=== PATIENT | male | born 1975 | race Caucasian/White ===

== ENCOUNTER 2022-02-22 14:00 | Inpatient (IN) ==
[2022-02-22] MEDS ORDERED: ONDANSETRON INJ 2 MG/ML 2 ML VIAL IV STA ×2 (14:24→16:42)
[2022-02-22] MEDS ORDERED: SODIUM CHLORIDE 0.9% 1000ML 2,000 ML IV ONE (14:24)
--- NOTE | 2022-02-22 14:26 | Emergency Department Note ---
Impression & Plan Pneumonia, BARB (acute kidney injury), Acute dehydration, Tachycardia, Vomiting ED Provider Note NAME: ARMINDA JAMA AGE: 46 SEX: M : 1975 ARRIVES VIA: Walk-In INFORMANT: [Patient] ED PROVIDER(S): [Gunnar Boudreaux MD] CHIEF COMPLAINT: Fever HISTORY OF PRESENT ILLNESS: The patient is a 46-year-old male who has had a fever to 104 the last 3 days. He did vomit yesterday and today. He has a decreased appetite and feels nauseated. There has been a slight cough. No sore throat, no stuffy nose or abdominal pain. No urinary complaints, no diarrhea. Patient did notice a little bit of discomfort in the right jaw and he was wondering if a tooth may be bothering him. The patient went to urgent care yesterday, a COVID test was negative. The patient states he is here today because he is concerned for dehydration and he has no answers what is causing his fever. Patient took Tylenol about an hour and a half ago. REVIEW OF SYSTEMS: See HPI for pertinent positives and negatives. A total of ten systems were reviewed and were otherwise negative. PMHx/PSHx: See Below SOCIAL HISTORY: See Below. PHYSICAL EXAM: GENERAL: Patient is in no acute distress. HEENT: No acute trauma, normocephalic atraumatic, mucous membranes moist, no nasal congestion, no scleral icterus. No throat erythema or exudate. No obvious issues with his teeth. No tenderness to the teeth. NECK: No stridor, no adenopathy, no meningismus, trachea is midline. LUNGS: Clear to auscultation bilaterally, no wheeze, no rhonchi, breath sounds equal. HEART: Tachycardic, regular rhythm, no murmurs. ABDOMEN: Soft, nontender, bowel sounds positive, no peritonitis. EXTREMITIES: No cyanosis or edema, full range of motion of all the joints without pain or difficulty, no signs for acute trauma. NEUROLOGIC: Oriented x 3, no acute motor or sensory deficits, no focal weakness. SKIN: No rash, no jaundice, mild diaphoresis. DIFFERENTIAL DIAGNOSIS: Sepsis, UTI, Lyme disease, anaplasmosis, babesiosis, influenza, COVID-19, pneumonia, metabolic abnormality, electrolyte abnormalities, cardiac sources, cellulitis, bacteremia, as well as other pathologies. EMERGENCY DEPARTMENT COURSE/PROCEDURES: ECG: Indication was tachycardia. The ECG shows a sinus tachycardia with a rate of 116. There is no ST elevation, no PVCs. The QTc is 4397 Continuous Cardiac Monitoring: An order was placed for continuous cardiac monitoring. The monitor shows a rate of 128 with sinus tachycardia. MEDICAL DECISION MAKING: There is a moderate leukocytosis which would be consistent with infection. There is a normal hemoglobin and platelet count. No coagulopathy. Creatinine is a bit elevated at 1.56 consistent with dehydration. Lactic acid level is not elevated making severe sepsis less likely. No concerning liver enzyme elevation. Lyme disease testing returned negative. Anaplasmosis testing is pending. COVID, influenza and RSV testing was negative. Chest x-ray shows a right lung pneumonia. Chest CT confirms the same pneumonia, no PE. The patient had minimal respiratory complaints but had a clear pneumonia on x- ray and CT. He was dehydrated by history and laboratory testing. He was tachycardic while here in the ED. The patient was given 2 L of IV saline, he received IV Zofran. He required a second dose of IV Zofran and IV Phenergan to help control his nausea. He was given IV Toradol for pain. He received IV ceftriaxone and oral doxycycline. He was given a DuoNeb. The patient has pneumonia. He is persistently tachycardic. He has had some nausea and vomiting at home and is dehydrated. During his ER stay, he actually became a bit hypoxic requiring O2 supplementation. The patient is in need of a hospital stay. I did speak with the patient and his family, the on-call hospitalist was consulted. Past Med/Surg History Medical History No pertinent past medical history Surgical History (Updated 02/22/22 @ 20:00 by Danni Cedillo PA-C) No pertinent past surgical history Family History (Updated 02/22/22 @ 19:31 by Danni Cedillo PA-C) Father Diabetes Mother Migraines Social History Smoking Status: Never smoker Hx Alcohol Use: No Hx Substance Use: No Preferred Language: Swedish marital status: current occupational status: employed current occupation: [employer] Feels Safe at Home: Yes Allergies Allergies Allergy/AdvReac Type Severity Reaction Status Date / Time No Known Allergies Allergy Unknown Verified 02/22/22 19:57 Home Meds Home Medications Medication Instructions Recorded Confirmed No Known Home Medications 02/22/22 02/22/22 Results & Data (ED) Vital Signs Vital Signs - 24 hr 02/22/22 14:02 02/22/22 15:50 02/22/22 16:07 Temperature 36.6 C Temperature Source Temporal Artery Scan Pulse Rate 128 H 104 H Pulse Rate from SpO2 Sensor 105 H Respiratory Rate 16 14 Respiratory Effort / Characteristics Non-Labored Spontaneous Blood Pressure 128/71 Blood Pressure Mean 90 Pulse Oximetry 92 96 Oxygen Delivery Method Room Air Room Air Room Air Oxygen Flow Rate Sepsis Recent Fever Within 48 Hours Yes Sepsis New/Unexplained Change in Mental Status No Sepsis Action Taken by Nursing No Action Required 02/22/22 16:10 02/22/22 16:20 02/22/22 16:30 Temperature Temperature Source Pulse Rate 108 H 105 H 110 H Pulse Rate from SpO2 Sensor 109 H 107 H 109 H Respiratory Rate 20 18 22 Respiratory Effort / Characteristics Blood Pressure 127/88 Blood Pressure Mean 101 Pulse Oximetry 93 97 95 Oxygen Delivery Method Room Air Room Air Room Air Oxygen Flow Rate Sepsis Recent Fever Within 48 Hours Sepsis New/Unexplained Change in Mental Status Sepsis Action Taken by Nursing 02/22/22 16:40 02/22/22 16:50 02/22/22 17:00 Temperature Temperature Source Pulse Rate 111 H 110 H 113 H Pulse Rate from SpO2 Sensor 111 H 111 H 113 H Respiratory Rate 21 24 25 H Respiratory Effort / Characteristics Blood Pressure 129/75 Blood Pressure Mean 93 Pulse Oximetry 100 96 95 Oxygen Delivery Method Room Air Room Air Room Air Oxygen Flow Rate Sepsis Recent Fever Within 48 Hours Sepsis New/Unexplained Change in Mental Status Sepsis Action Taken by Nursing 02/22/22 17:10 02/22/22 17:20 02/22/22 17:30 Temperature Temperature Source Pulse Rate 118 H 118 H 118 H Pulse Rate from SpO2 Sensor 117 H 118 H 119 H Respiratory Rate 31 H 15 19 Respiratory Effort / Characteristics Blood Pressure 132/85 Blood Pressure Mean 100 Pulse Oximetry 93 93 95 Oxygen Delivery Method Room Air Room Air Room Air Oxygen Flow Rate Sepsis Recent Fever Within 48 Hours Sepsis New/Unexplained Change in Mental Status Sepsis Action Taken by Nursing 02/22/22 17:40 02/22/22 17:50 02/22/22 18:00 Temperature Temperature Source Pulse Rate 118 H 120 H 120 H Pulse Rate from SpO2 Sensor 118 H 120 H 120 H Respiratory Rate 20 38 H 37 H Respiratory Effort / Characteristics Blood Pressure 107/69 Blood Pressure Mean 81 Pulse Oximetry 94 90 91 Oxygen Delivery Method Room Air Nasal Cannula Nasal Cannula Oxygen Flow Rate 2 2 Sepsis Recent Fever Within 48 Hours Sepsis New/Unexplained Change in Mental Status Sepsis Action Taken by Nursing 02/22/22 18:10 Temperature Temperature Source Pulse Rate 122 H Pulse Rate from SpO2 Sensor 122 H Respiratory Rate 26 H Respiratory Effort / Characteristics Blood Pressure Blood Pressure Mean Pulse Oximetry 93 Oxygen Delivery Method Nasal Cannula Oxygen Flow Rate 2 Sepsis Recent Fever Within 48 Hours Sepsis New/Unexplained Change in Mental Status Sepsis Action Taken by Intermediate Medications Current Medication List: was personally reviewed by me Laboratory Data Attestation: I reviewed the patient's lab results. Result diagrams: 02/22/22 14:42 02/22/22 14:42 Lab Results 02/22/22 02/22/22 02/22/22 Range/Units 14:42 14:42 14:42 WBC 14.44 H (4.8-10.8) K/uL RBC 5.19 (4.7-6.1) M/uL Hgb 15.9 (14.0-18.0) g/dL Hct 45.4 (42-52) % MCV 87.5 (80-100) fL MCH 30.6 (25-34) pg MCHC 35.0 (32-36) g/dL RDW Std Deviation 40.8 (36.4-46.3) fL RDW Coeff of Tracy 12.7 (11.5-14.5) % Plt Count 158 (130-400) K/uL MPV 11.3 H (7.4-10.4) fL Immature Gran % (Auto) 0.7 % Neut % (Auto) 90.0 % Lymph % (Auto) 3.3 % Marathon % (Auto) 5.9 % Eos % (Auto) 0.0 % Baso % (Auto) 0.1 % Neut # (Auto) 13.01 H (1.4-6.5) K/uL Lymph # (Auto) 0.47 L (1.2-3.4) K/uL Marathon # (Auto) 0.85 H (0.11-0.59) K/uL Eos # (Auto) 0.00 (0-0.5) K/uL Baso # (Auto) 0.01 (0-0.2) K/uL Immature Gran # (Auto) 0.10 H (0.00-0.02) K/uL PT 11.5 (9.0-12.0) Seconds INR 1.1 (0.9-1.1) APTT 28.0 (21.0-31.0) Seconds PTT Ratio 1.0 Sodium 136 (136-145) mmol/L Potassium 3.6 (3.5-5.1) mmol/L Chloride 102 (98-107) mmol/L Carbon Dioxide 24 (21-32) mmol/L Anion Gap 10 (3-11) BUN 27 H (6-23) mg/dl Creatinine 1.56 H (0.6-1.4) mg/dl Est Cr Clr Drug Dosing 63.1 ml/min Est GFR ( Amer) 60.8 ml/min Est GFR (Non-Af Amer) 52.5 ml/min BUN/Creatinine Ratio 17.3 (10-20) Glucose 114 H (70-99(Fasting)) mg/dl Lactate (0.4-2.0) mmol/L Calcium 9.4 (8.5-10.1) mg/dl Magnesium 1.9 (1.7-2.4) mg/dl Total Bilirubin 0.7 (0.2-1.0) mg/dl AST 15 (13-39) U/L ALT 14 (7-52) U/L Alkaline Phosphatase 64 (34-104) U/L Total Protein 7.5 (6.0-8.3) gm/dl Albumin 3.9 (3.4-5.0) gm/dl Globulin 3.6 (2.5-4.0) gm/dl Albumin/Globulin Ratio 1.1 (0.9-2) Procalcitonin (0-0.5) ng/ml Lyme Disease IgG Ab (Negative) Lyme Disease IgM Ab (Negative) SARS-CoV-2 (PCR) (Negative) Influenza Type A (PCR) (Neg) Influenza Type B (PCR) (Neg) RSV (RT-PCR) (Neg) 02/22/22 02/22/22 02/22/22 Range/Units 14:42 14:42 15:55 WBC (4.8-10.8) K/uL RBC (4.7-6.1) M/uL Hgb (14.0-18.0) g/dL Hct (42-52) % MCV (80-100) fL MCH (25-34) pg MCHC (32-36) g/dL RDW Std Deviation (36.4-46.3) fL RDW Coeff of Tracy (11.5-14.5) % Plt Count (130-400) K/uL MPV (7.4-10.4) fL Immature Gran % (Auto) % Neut % (Auto) % Lymph % (Auto) % Marathon % (Auto) % Eos % (Auto) % Baso % (Auto) % Neut # (Auto) (1.4-6.5) K/uL Lymph # (Auto) (1.2-3.4) K/uL Marathon # (Auto) (0.11-0.59) K/uL Eos # (Auto) (0-0.5) K/uL Baso # (Auto) (0-0.2) K/uL Immature Gran # (Auto) (0.00-0.02) K/uL PT (9.0-12.0) Seconds INR (0.9-1.1) APTT (21.0-31.0) Seconds PTT Ratio Sodium (136-145) mmol/L Potassium (3.5-5.1) mmol/L Chloride (98-107) mmol/L Carbon Dioxide (21-32) mmol/L Anion Gap (3-11) BUN (6-23) mg/dl Creatinine (0.6-1.4) mg/dl Est Cr Clr Drug Dosing ml/min Est GFR ( Amer) ml/min Est GFR (Non-Af Amer) ml/min BUN/Creatinine Ratio (10-20) Glucose (70-99(Fasting)) mg/dl Lactate 1.4 (0.4-2.0) mmol/L Calcium (8.5-10.1) mg/dl Magnesium (1.7-2.4) mg/dl Total Bilirubin (0.2-1.0) mg/dl AST (13-39) U/L ALT (7-52) U/L Alkaline Phosphatase (34-104) U/L Total Protein (6.0-8.3) gm/dl Albumin (3.4-5.0) gm/dl Globulin (2.5-4.0) gm/dl Albumin/Globulin Ratio (0.9-2) Procalcitonin (0-0.5) ng/ml Lyme Disease IgG Ab Negative (Negative) Lyme Disease IgM Ab Negative (Negative) SARS-CoV-2 (PCR) NEGATIVE (Negative) Influenza Type A (PCR) Negative (Neg) Influenza Type B (PCR) Negative (Neg) RSV (RT-PCR) Negative (Neg) 02/22/22 Range/Units 19:07 WBC (4.8-10.8) K/uL RBC (4.7-6.1) M/uL Hgb (14.0-18.0) g/dL Hct (42-52) % MCV (80-100) fL MCH (25-34) pg MCHC (32-36) g/dL RDW Std Deviation (36.4-46.3) fL RDW Coeff of Tracy (11.5-14.5) % Plt Count (130-400) K/uL MPV (7.4-10.4) fL Immature Gran % (Auto) % Neut % (Auto) % Lymph % (Auto) % Marathon % (Auto) % Eos % (Auto) % Baso % (Auto) % Neut # (Auto) (1.4-6.5) K/uL Lymph # (Auto) (1.2-3.4) K/uL [place] # (Auto) (0.11-0.59) K/uL Eos # (Auto) (0-0.5) K/uL Baso # (Auto) (0-0.2) K/uL Immature Gran # (Auto) (0.00-0.02) K/uL PT (9.0-12.0) Seconds INR (0.9-1.1) APTT (21.0-31.0) Seconds PTT Ratio Sodium (136-145) mmol/L Potassium (3.5-5.1) mmol/L Chloride (98-107) mmol/L Carbon Dioxide (21-32) mmol/L Anion Gap (3-11) BUN (6-23) mg/dl Creatinine (0.6-1.4) mg/dl Est Cr Clr Drug Dosing ml/min Est GFR ( Amer) ml/min Est GFR (Non-Af Amer) ml/min BUN/Creatinine Ratio (10-20) Glucose (70-99(Fasting)) mg/dl Lactate (0.4-2.0) mmol/L Calcium (8.5-10.1) mg/dl Magnesium (1.7-2.4) mg/dl Total Bilirubin (0.2-1.0) mg/dl AST (13-39) U/L ALT (7-52) U/L Alkaline Phosphatase (34-104) U/L Total Protein (6.0-8.3) gm/dl Albumin (3.4-5.0) gm/dl Globulin (2.5-4.0) gm/dl Albumin/Globulin Ratio (0.9-2) Procalcitonin 3.38 H (0-0.5) ng/ml Lyme Disease IgG Ab (Negative) Lyme Disease IgM Ab (Negative) SARS-CoV-2 (PCR) (Negative) Influenza Type A (PCR) (Neg) Influenza Type B (PCR) (Neg) RSV (RT-PCR) (Neg) Administered Medications Discontinued Medications Albuterol (Albut/Ipratrop 3mg/0.5mg Neb 3 Ml Vial) 3 ml NEB NOW STA; Protocol Stop: 02/22/22 18:38 Last Admin: 02/22/22 19:05 Dose: 3 ml Documented by: [id number] Doxycycline Hyclate (Doxycycline Hyclate 100 Mg Cap) 100 mg PO NOW STA Stop: 02/22/22 16:07 Last Admin: 02/22/22 19:06 Dose: 100 mg Documented by: [id number] Sodium Chloride (Nss 1000ml) 2,000 mls @ 999 mls/hr IV .Q2H1M ONE Stop: 02/22/22 16:24 Last Infusion: 02/22/22 17:48 Dose: 0 mls/hr Documented by: [id number] Admin: 02/22/22 15:52 Dose: 999 mls/hr Documented by: [id number] Ceftriaxone Sodium (Rocephin) 2,000 mg in 70 mls @ 140 mls/hr IV NOW STA Stop: 02/22/22 15:32 Last Infusion: 02/22/22 16:27 Dose: 0 mls/hr Documented by: [id number] Admin: 02/22/22 15:52 Dose: 140 mls/hr Documented by: [id number] Promethazine HCl (Phenergan) 6.25 mg in 50.25 mls @ 201 mls/hr IV NOW STA Stop: 02/22/22 16:56 Last Infusion: 02/22/22 17:48 Dose: 0 mls/hr Documented by: [id number] Admin: 02/22/22 17:31 Dose: 201 mls/hr Documented by: [id number] Ioversol (Optiray 320 125ml) 114 ml IV ONCE ONE Stop: 02/22/22 19:00 Last Admin: 02/22/22 19:00 Dose: 114 ml Documented by: [id number] Ketorolac Tromethamine (Ketorolac Tromethamine 15 Mg/Ml Vial) 15 mg IV NOW STA Stop: 02/22/22 16:43 Last Admin: 02/22/22 17:31 Dose: 15 mg Documented by: [id number] Ondansetron HCl (Ondansetron Inj 2 Mg/Ml 2 Ml Vial) 4 mg IV NOW STA Stop: 02/22/22 14:25 Last Admin: 02/22/22 15:52 Dose: 4 mg Documented by: [id number] Ondansetron HCl (Ondansetron Inj 2 Mg/Ml 2 Ml Vial) 4 mg IV NOW STA Stop: 02/22/22 16:43 Last Admin: 02/22/22 17:31 Dose: 4 mg Documented by: [id number] Imaging Data Radiologist's Impression: Chest X-Ray 02/22/22 14:24 XR chest 1V portable HISTORY: 46 years-old Male SEPSIS acute sepsis with fever COMPARISON: None TECHNIQUE: Portable AP view of the chest FINDINGS: The cardiomediastinal and hilar silhouettes are within normal limits. No pneumothorax, or large pleural effusion or overt pulmonary edema. Right lung base airspace opacities are noted along with right infrahilar opacities. Bones appear grossly intact. IMPRESSION: Right basilar and infrahilar opacities are suggestive of pneumonia. Follow-up imaging after treatment course is needed to document complete resolution. ACT 112: Negative or not required by law. The above report was generated using voice recognition software. It may contain grammatical, syntax or spelling errors. Electronically signed by: Isidro Campo M.D. 02/22/2022 2:50 PM Chest CTA 02/22/22 18:20 CT angio chest PE protocol CLINICAL HISTORY: PE TECHNIQUE: Multidetector row helical CT of the chest was performed with angiographic protocol. Coronal and sagittal reformations were obtained. Coronal and sagittal MIPS were obtained from the axial data set and were submitted for review. Automated dose lowering techniques and/or adjustment according to patient size were utilized for this exam. CT DOSE: 552.48 mGy.cm Comparison: None available at the time of this dictation. FINDINGS: Lungs and pleura: Right lower lobe airspace opacity is seen. Heart and pericardium: Heart size is normal. No pericardial effusion. Vessels: No evidence of pulmonary embolism. Mediastinum and sailaja: Subcentimeter lymph nodes are seen. Chest wall and lower neck: Subcentimeter thyroid nodules are noted which do not require follow-up by ACR criteria. Abdomen: Unremarkable. Bones: Unremarkable. IMPRESSION: 1. Right lower lobe airspace opacity may represent aspiration and/or pneumonia. 2. No evidence of pulmonary embolism. ACT 112: Negative or not required by law. Electronically signed by: Cortez Helton M.D. 02/22/2022 7:11 PM KUB X-Ray 02/22/22 19:49 XR KUB/Abdomen 1 view CLINICAL HISTORY: abd pain TECHNIQUE: 1 view of the abdomen was obtained. Comparison: None available at the time of this dictation. FINDINGS: Incidental note is made of bilateral pyelograms prior contrast exam. The osseous structures are grossly unremarkable. The bowel gas pattern is nonobstructive. A moderate amount of stool is noted within the large bowel. IMPRESSION: Nonobstructive bowel gas pattern. ACT 112: Negative or not required by law. Electronically signed by: Cortez Helton M.D. 02/22/2022 8:33 PM Discharge Plan Visit Data Chief Complaint: Fever Stated Complaint: FEVER FOR SEVERAL DAYS ED Provider: Gunnar Boudreaux Discharge Problem: Pneumonia, BARB (acute kidney injury), Acute dehydration, Tachycardia, Vomiting Patient Disposition: Admitted As Inpatient Condition: Fair Forms Stand Alone Forms: Runtastic Prescriptions Prescriptions: No Action No Known Home Medications RF: 0 Referrals Referrals: Karoline Yepez DO [Primary Care Provider] -
--- NOTE | 2022-02-22 14:52 | XRay Report ---
XR chest 1V portable HISTORY: 46 years-old Male SEPSIS acute sepsis with fever COMPARISON: None TECHNIQUE: Portable AP view of the chest FINDINGS: The cardiomediastinal and hilar silhouettes are within normal limits. No pneumothorax, or large pleur al effusion or overt pulmonary edema. Right lung base airspace opacities are noted along with right i nfrahilar opacities. Bones appear grossly intact. IMPRESSION: Right basilar and infrahilar opacities are suggestive of pneumonia. Follow-up imaging aft er treatment course is needed to document complete resolution. ACT 112: Negative or not required by law. The above report was generated using voice recognition software. It may contain grammatical, syntax o r spelling errors. Electronically signed by: Isidro Campo M.D. 02/22/2022 2:50 PM
[2022-02-22] MEDS ORDERED: cefTRIAXone SODIUM 2,000 MG/70 ML BAG IV STA (15:03)
[2022-02-22 15:04] LABS: Basophils # (auto) 0.01 K/uL (0-0.2); Basophils % (auto) 0.1 %; Hematocrit (blood only) 45.4 % (42-52); Hemoglobin 15.9 g/dL (14.0-18.0); Immature Granulocytes % (auto) 0.7 %; Lymphocytes # (auto) 0.47 K/uL (1.2-3.4); Lymphocytes % (auto) 3.3 %; Mean Corpuscular Hemoglobin 30.6 pg (25-34); Mean Corpuscular Volume 87.5 fL (80-100); Mean Platelet Volume 11.3 fL (7.4-10.4); Monocytes # (auto) 0.85 K/uL (0.11-0.59); Monocytes % (auto) 5.9 %; Neutrophils # (auto) 13.01 K/uL (1.4-6.5); Platelet Count 158 K/uL (130-400); RDW Coefficient of Variation 12.7 % (11.5-14.5); RDW Standard Deviation 40.8 fL (36.4-46.3); Red Blood Count 5.19 M/uL (4.7-6.1); White Blood Count 14.44 K/uL (4.8-10.8)
[2022-02-22 15:17] LABS: Albumin Globulin Ratio 1.1 (0.9-2); Albumin Level 3.9 gm/dl (3.4-5.0); BUN Creatinine Ratio 17.3 (10-20); Bilirubin,Total 0.7 mg/dl (0.2-1.0); Calcium 9.4 mg/dl (8.5-10.1); Creatinine Clr Calc Pharmacy 63.1 ml/min; Est GFR (African American) 60.8 ml/min; Est GFR (Non-African American) 52.5 ml/min; Globulin 3.6 gm/dl (2.5-4.0); Magnesium 1.9 mg/dl (1.7-2.4); Potassium 3.6 mmol/L (3.5-5.1); Total Protein 7.5 gm/dl (6.0-8.3)
[2022-02-22 15:23] LABS: INR 1.1 (0.9-1.1); Prothrombin Time 11.5 Seconds (9.0-12.0)
[2022-02-22 15:56] LABS: Lyme Ab IgG w/WB Rflx Negative (Negative); Lyme Ab IgM w/WB Rflx Negative (Negative)
--- NOTE | 2022-02-22 16:05 | Electrocardiogram Report ---
Test Reason : Blood Pressure : / mmHG Vent. Rate : 116 BPM Atrial Rate : 116 BPM P-R Int : 150 ms QRS Dur : 084 ms QT Int : 286 ms P-R-T Axes : 048 038 012 degrees QTc Int : 397 ms Sinus tachycardia Otherwise normal ECG When compared with ECG of 22-SEP-2010 23:54, No significant change was found Confirmed by Pipo Truong ([id number]) on 02/22/2022 4:04:55 PM Referred By: REFERRED SELF Confirmed By:Pipo Truong
[2022-02-22] MEDS ORDERED: DOXYCYCLINE HYCLATE 100 MG CAP PO STA (16:06)
[2022-02-22] MEDS ORDERED: KETOROLAC TROMETHAMINE 15 MG/ML VIAL IV STA (16:42)
[2022-02-22] MEDS ORDERED: PROMETHAZINE 6.25 MG/50.25 ML BAG IV STA (16:42)
[2022-02-22 17:08] LABS: Influenza A virus by PCR Negative (Neg); Influenza B virus by PCR Negative (Neg); RSV by PCR Negative (Neg); SARS CoV2 RNA(COVID-19) InHosp NEGATIVE (Negative)
[2022-02-22] MEDS ORDERED: ALBUT/IPRATROP 3MG/0.5MG NEB 3 ML VIAL NEB STA (18:37)
[2022-02-22] MEDS ORDERED: OPTIRAY 320 125ml IV ONE (18:59)
--- NOTE | 2022-02-22 19:12 | CT Scan Report ---
CT angio chest PE protocol CLINICAL HISTORY: PE TECHNIQUE: Multidetector row helical CT of the chest was performed with angiographic protocol. Garland l and sagittal reformations were obtained. Coronal and sagittal MIPS were obtained from the axial nancy a set and were submitted for review. Automated dose lowering techniques and/or adjustment according to patient size were utilized for this exam. CT DOSE: 552.48 mGy.cm Comparison: None available at the time of this dictation. FINDINGS: Lungs and pleura: Right lower lobe airspace opacity is seen. Heart and pericardium: Heart size is normal. No pericardial effusion. Vessels: No evidence of pulmonary embolism. Mediastinum and sailaja: Subcentimeter lymph nodes are seen. Chest wall and lower neck: Subcentimeter thyroid nodules are noted which do not require follow-up by ACR criteria. Abdomen: Unremarkable. Bones: Unremarkable. IMPRESSION: 1. Right lower lobe airspace opacity may represent aspiration and/or pneumonia. 2. No evidence of pulmonary embolism. ACT 112: Negative or not required by law. Electronically signed by: Cortez Helton M.D. 02/22/2022 7:11 PM
--- NOTE | 2022-02-22 20:10 | History & Physical Report ---
Date of Service February 22, 2022 Assessment & Plan (1) Sepsis: (2) RLL pneumonia: (3) Hypoxia: (4) BARB (acute kidney injury): (5) Nausea & vomiting: Plan: Patient meets sepsis criteria per current CMS guidelines Upon admission patient was tachycardic, tachypneic and elevated white blood cell count of 14k. Patient also reports fever of 104 for the last 3 days at home. Source: Right lower lobe pneumonia Lactic acid, Lyme, SARS-CoV-2, influenza AMB and RSV all negative He received 2 L of IV fluid along with broad-spectrum antibiotics with IV Rocephin and oral doxycycline Sepsis Right lower lobe pneumonia Hypoxia Admit to PCU Continue broad-spectrum antibiotics with IV Rocephin and IV azithromycin As needed xopenex nebulizer Supplemental oxygen as needed Encourage pulmonary toilet with incentive spirometry Aspiration precautions Procalcitonin pending, urine for Legionella ordered, mrsa swab blood cultures pending BARB cr 1.56, likely 2/2 to dehydration due to infection/sepsis continue IVF NSS @ 125cc/hr repeat bmp in a.m. Nausea & Vomiting obtain KUB continue anti emetics, IVF clear liquid diet for now, can advance as tolerated DVT ppx: SQ Lovenox Dispo: PCU FULL CODE PCP: Marleni, given pt otherwise healthy he has not seen PCP in a long time, will need OP follow up Pt was seen and examined in collaboration with Dr. Crenshaw, please see addendum History of Present Illness Chief Complaint: Fever x 3 days. Primary Care Provider: Karoline Yepez, DO This is a 46-year-old male who has significant past medical history and is otherwise healthy who presents to ED after having a fever of 104 for the last 3 days. He further complains of nausea and vomiting over the last 2 days. He also has mild lower abdominal pain. Patient did go to urgent care yesterday and had a COVID test which was negative. He presented to ED today after continuing to have a fever and fear of dehydration. He has been taking Tylenol at home to assist in fever. He denies any sick contacts or recent travel. He has no known past medical problems and does not take any prescription medications. Over the last few days he has had a poor appetite. He further admits to shortness of breath with exertion but denies any isaías cough. He further denies lightheadedness, dizziness, chest pain, hemoptysis, dysuria, increased urgency or frequency with urination, diarrhea, melena or hematochezia. He has never had a thing like this in the past. In ED patient met sepsis criteria secondary to tachycardia, tachypnea, leukocytosis and evidence of right lower lobe pneumonia on chest x-ray. He also appears dehydrated as he is elevated BUN and creatinine at 27 and 1.56. His lactic acid was within normal limits. His Lyme titer was negative along with a SARS-CoV-2, influenza and RSV. Allergies Allergy/AdvReac Type Severity Reaction Status Date / Time No Known Allergies Allergy Unknown Verified 02/22/22 19:57 Home Medications Medication Instructions Recorded Confirmed Type No Known Home Medications 02/22/22 02/22/22 History Past Med/Surg History Medical History No pertinent past medical history Surgical History (Updated 02/22/22 @ 20:00 by Danni Cedillo PA-C) No pertinent past surgical history Family History (Updated 02/22/22 @ 19:31 by Danni Cedillo PA-C) Father Diabetes Mother Migraines Social History Smoking Status: Never smoker Hx Alcohol Use: No Hx Substance Use: No Preferred Language: Czech marital status: current occupational status: employed 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 Crenshaw addendum for physical exam findings. Results & Data Results & Data ([facility]) Vital Signs (Past 12 Hours) Vital Signs Temp Pulse Resp BP Pulse Ox 02/22/22 18:10 122 H 26 H 93 02/22/22 18:00 120 H 37 H 107/69 91 02/22/22 17:50 120 H 38 H 90 02/22/22 17:40 118 H 20 94 02/22/22 17:30 118 H 19 132/85 95 02/22/22 17:20 118 H 15 93 02/22/22 17:10 118 H 31 H 93 02/22/22 17:00 113 H 25 H 129/75 95 02/22/22 16:50 110 H 24 96 02/22/22 16:40 111 H 21 100 02/22/22 16:30 110 H 22 127/88 95 02/22/22 16:20 105 H 18 97 02/22/22 16:10 108 H 20 93 02/22/22 16:07 104 H 14 96 02/22/22 14:02 36.6 C 128 H 16 128/71 92 Diagnostic Findings Chest X-Ray 02/22/22 14:24 XR chest 1V portable HISTORY: 46 years-old Male SEPSIS acute sepsis with fever COMPARISON: None TECHNIQUE: Portable AP view of the chest FINDINGS: The cardiomediastinal and hilar silhouettes are within normal limits. No pneumothorax, or large pleural effusion or overt pulmonary edema. Right lung base airspace opacities are noted along with right infrahilar opacities. Bones appear grossly intact. IMPRESSION: Right basilar and infrahilar opacities are suggestive of pneumonia. Follow-up imaging after treatment course is needed to document complete resolution. ACT 112: Negative or not required by law. The above report was generated using voice recognition software. It may contain grammatical, syntax or spelling errors. Electronically signed by: Isidro Campo M.D. 02/22/2022 2:50 PM Chest CTA 02/22/22 18:20 CT angio chest PE protocol CLINICAL HISTORY: PE TECHNIQUE: Multidetector row helical CT of the chest was performed with angiographic protocol. Coronal and sagittal reformations were obtained. Coronal and sagittal MIPS were obtained from the axial data set and were submitted for review. Automated dose lowering techniques and/or adjustment according to patient size were utilized for this exam. CT DOSE: 552.48 mGy.cm Comparison: None available at the time of this dictation. FINDINGS: Lungs and pleura: Right lower lobe airspace opacity is seen. Heart and pericardium: Heart size is normal. No pericardial effusion. Vessels: No evidence of pulmonary embolism. Mediastinum and sailaja: Subcentimeter lymph nodes are seen. Chest wall and lower neck: Subcentimeter thyroid nodules are noted which do not require follow-up by ACR criteria. Abdomen: Unremarkable. Bones: Unremarkable. IMPRESSION: 1. Right lower lobe airspace opacity may represent aspiration and/or pneumonia. 2. No evidence of pulmonary embolism. ACT 112: Negative or not required by law. Electronically signed by: Cortez Helton M.D. 02/22/2022 7:11 PM Medications Administered Medication List Discontinued Medications Albuterol (Albut/Ipratrop 3mg/0.5mg Neb 3 Ml Vial) 3 ml NEB NOW STA; Protocol Stop: 02/22/22 18:38 Last Admin: 02/22/22 19:05 Dose: 3 ml Documented by: [id number] Doxycycline Hyclate (Doxycycline Hyclate 100 Mg Cap) 100 mg PO NOW STA Stop: 02/22/22 16:07 Last Admin: 02/22/22 19:06 Dose: 100 mg Documented by: [id number] Sodium Chloride (Nss 1000ml) 2,000 mls @ 999 mls/hr IV .Q2H1M ONE Stop: 02/22/22 16:24 Last Infusion: 02/22/22 17:48 Dose: 0 mls/hr Documented by: [id number] Admin: 02/22/22 15:52 Dose: 999 mls/hr Documented by: [id number] Ceftriaxone Sodium (Rocephin) 2,000 mg in 70 mls @ 140 mls/hr IV NOW STA Stop: 02/22/22 15:32 Last Infusion: 02/22/22 16:27 Dose: 0 mls/hr Documented by: [id number] Admin: 02/22/22 15:52 Dose: 140 mls/hr Documented by: [id number] Promethazine HCl (Phenergan) 6.25 mg in 50.25 mls @ 201 mls/hr IV NOW STA Stop: 02/22/22 16:56 Last Infusion: 02/22/22 17:48 Dose: 0 mls/hr Documented by: [id number] Admin: 02/22/22 17:31 Dose: 201 mls/hr Documented by: [id number] Ioversol (Optiray 320 125ml) 114 ml IV ONCE ONE Stop: 02/22/22 19:00 Last Admin: 02/22/22 19:00 Dose: 114 ml Documented by: [id number] Ketorolac Tromethamine (Ketorolac Tromethamine 15 Mg/Ml Vial) 15 mg IV NOW STA Stop: 02/22/22 16:43 Last Admin: 02/22/22 17:31 Dose: 15 mg Documented by: [id number] Ondansetron HCl (Ondansetron Inj 2 Mg/Ml 2 Ml Vial) 4 mg IV NOW STA Stop: 02/22/22 14:25 Last Admin: 02/22/22 15:52 Dose: 4 mg Documented by: [id number] Ondansetron HCl (Ondansetron Inj 2 Mg/Ml 2 Ml Vial) 4 mg IV NOW STA Stop: 02/22/22 16:43 Last Admin: 02/22/22 17:31 Dose: 4 mg Documented by: [id number] ECG Rate (beats per minute): 116 Rhythm: sinus tachycardia Additional Comments: qtc 397ms COVID-19 Results Results COVID-19 Adm Lab Results: RBC 5.19 M/uL (4.7-6.1) 02/22/22 WBC 14.44 K/uL (4.8-10.8) H 02/22/22 Hgb 15.9 g/dL (14.0-18.0) 02/22/22 Hct 45.4 % (42-52) 02/22/22 Plt Count 158 K/uL (130-400) 02/22/22 Neutrophils (%) (Auto) 90.0 % 02/22/22 Lymphocytes (%) (Auto) 3.3 % 02/22/22 Monocytes # (Auto) 0.85 K/uL (0.11-0.59) H 02/22/22 Eosinophils # (Auto) 0.00 K/uL (0-0.5) 02/22/22 Immature Granulocyte % (Auto) 0.7 % 02/22/22 Neutrophils # (Auto) 13.01 K/uL (1.4-6.5) H 02/22/22 Lymphocytes # (Auto) 0.47 K/uL (1.2-3.4) L 02/22/22 Monocytes # (Auto) 0.85 K/uL (0.11-0.59) H 02/22/22 Eosinophils # (Auto) 0.00 K/uL (0-0.5) 02/22/22 Basophils # (Auto) 0.01 K/uL (0-0.2) 02/22/22 Immature Granulocyte # (Auto) 0.10 K/uL (0.00-0.02) H 02/22/22 Na 136 mmol/L (136-145) 02/22/22 K 3.6 mmol/L (3.5-5.1) 02/22/22 Cl 102 mmol/L (98-107) 02/22/22 CO2 24 mmol/L (21-32) 02/22/22 Anion Gap 10 (3-11) 02/22/22 BUN 27 mg/dl (6-23) H 02/22/22 Creatinine 1.56 mg/dl (0.6-1.4) H 02/22/22 BUN/Creatinine Ratio 17.3 (10-20) 02/22/22 Glucose Level 114 mg/dl (70-99(Fasting)) H 02/22/22 Ca 9.4 mg/dl (8.5-10.1) 02/22/22 Total Bilirubin 0.7 mg/dl (0.2-1.0) 02/22/22 AST/SGOT 15 U/L (13-39) 02/22/22 ALT/SGPT 14 U/L (7-52) 02/22/22 Alkaline Phosphatase 64 U/L (34-104) 02/22/22 Total Protein 7.5 gm/dl (6.0-8.3) 02/22/22 Albumin 3.9 gm/dl (3.4-5.0) 02/22/22 Globulin 3.6 gm/dl (2.5-4.0) 02/22/22 Albumin/Globulin Ratio 1.1 (0.9-2) 02/22/22 Procalcitonin 3.38 ng/ml (0-0.5) H 02/22/22 PTT 28.0 Seconds (21.0-31.0) 02/22/22 INR 1.1 (0.9-1.1) 02/22/22 COVID-19 PCR NEGATIVE (Negative) 02/22/22 Influenza Virus Type A (PCR) Negative (Neg) 02/22/22 Influenza Virus Type B (PCR) Negative (Neg) 02/22/22 Chest X-Ray 02/22/22 Code Status & VTE Plan Code Status FULL CODE VTE Prophylaxis Plan VTE Prophylaxis will be ordered: Yes Supervising Physician Co-Signing Physician Notes Patient is a 46-year-old male with no significant past medical history presents with history of fever, nausea, vomiting, mild lower abdominal pain, poor appetite and some dyspnea which has been gradually worsening for the past 3 days. He denies any significant cough. Denies sick contacts. Please review HPI for complete details of presentation. Blood work showed WBC 14.4, hemoglobin 15.9, platelet 158, sodium 136, potassium 3.6, bicarbonate 24, creatinine 1.5, procalcitonin 3.38. Screen for COVID, influenza, RSV negative. Chest CTA showed right lower lobe airspace opacity concerning for pneumonia. KUB showed nonobstructive bowel gas pattern. Blood cultures pending. Physical Exam: Vitals signs as noted above General Appearance:Moderately built and nourished, no apparent distress Head: normocephalic, Atraumatic Eyes: normal inspection, EOMI Neck: supple, Trachea midline Respiratory/Chest: Normal breath sounds, R basal crackles, No accessory muscle use Cardiovascular: S1, S2, No murmur Abdomen/GI:Soft, Non tender, Bowel sounds present Extremities/Musculoskeletal:normal inspection, no edema Neurologic/Psych:AAOX3, grossly no focal neurological deficits Skin:normal color,warm Sepsis CAP BARB Start on ceftriaxone, azithromycin, follow-up cultures IV fluids Avoid nephrotoxic agents as able Check stool studies if atorvastatin Agree with checking urine for Legionella Advance diet as tolerated Nebs PRN Consider renal ultrasound if no improvement of creatinine I personally reviewed the record. Patient is interviewed and examined at bedside. Patient's care is coordinated with Danni Cedillo PA-C. Please refer to the documentation above for details of patient's presentation and for dis cussion of other issues.
--- NOTE | 2022-02-22 20:34 | XRay Report ---
XR KUB/Abdomen 1 view CLINICAL HISTORY: abd pain TECHNIQUE: 1 view of the abdomen was obtained. Comparison: None available at the time of this dictation. FINDINGS: Incidental note is made of bilateral pyelograms prior contrast exam. The osseous structures are gross ly unremarkable. The bowel gas pattern is nonobstructive. A moderate amount of stool is noted within the large bowel. IMPRESSION: Nonobstructive bowel gas pattern. ACT 112: Negative or not required by law. Electronically signed by: Cortez Helton M.D. 02/22/2022 8:33 PM
[2022-02-22] MEDS ORDERED: ALUMINUM/MAGNESIUM SUSP 30 ML UDC PO PRN (21:19)
[2022-02-22] MEDS ORDERED: POLYETHYLENE (MIRALAX) 17 GM PACK PO PRN (21:19)
[2022-02-22] MEDS ORDERED: MAGNESIUM HYDROXIDE SUSP 30 ML UDC PO PRN (21:19)
[2022-02-22] MEDS ORDERED: ONDANSETRON INJ 2 MG/ML 2 ML VIAL IV PRN (21:19)
[2022-02-22] MEDS: ACETAMINOPHEN 325 MG TAB PO PRN (21:37)
[2022-02-22] MEDS: SODIUM CHLORIDE 0.9% 1000ML 1,000 ML IV SCH (21:48)
[2022-02-22] MEDS: ENOXAPARIN INJ 40 MG/0.4 ML SYR SQ SCH (22:49)
[2022-02-22] MEDS: FAMOTIDINE 10 MG TABLET PO SCH (22:50)
[2022-02-22] MEDS: AZITHROMYCIN 500 MG in DEXTROSE 5% 250 ML IV SCH (23:33)
[2022-02-23] MEDS ORDERED: FLUARIX QUADRIVALENT 0.5 ML SYR IM ONE (01:13)
[2022-02-23] MEDS: ACETAMINOPHEN 325 MG TAB PO PRN ×5 (03:40→20:07)
[2022-02-23] MEDS: BENZONATATE 100 MG CAPSULE PO PRN (04:25)
[2022-02-23] MEDS ORDERED: SODIUM CHLORIDE 0.65% NA SOLN 45 ML (OCEAN) PRN (04:32)
[2022-02-23 05:12] LABS: Appearance Urine Cloudy (Clear); Bacteria Urine Automated Negative (Negative); Bilirubin Urine Negative (Negative); Blood Urine 3+ (Negative); Color Urine Dark Yellow; Epithelial Cell Urine Auto >30 /lpf (0-5); Glucose Urine UA Negative (Negative); Ketones Urine 1+ (Negative); Leukocyte Esterase Urine 1+ (Negative); Nitrite Urine Negative (Negative); Protein Urine 3+ (Negative); RBC Urine Automated >30 /hpf (0-4); Specific Gravity Urine > 1.045 (1.000-1.030); Urobilinogen Urine Negative (Negative); WBC Urine Automated >30 /hpf (0-5); pH Urine 5.5 (4.5-7.5)
[2022-02-23] MEDS: SODIUM CHLORIDE 0.9% 1000ML 1,000 ML IV SCH ×3 (06:00→21:35)
[2022-02-23 06:23] LABS: Renal Epithelial Cells Urine 0-5 /lpf (0-5)
[2022-02-23 07:40] LABS: Basophils # (auto) 0.01 K/uL (0-0.2); Basophils % (auto) 0.1 %; Hematocrit (blood only) 39.3 % (42-52); Hemoglobin 13.5 g/dL (14.0-18.0); Immature Granulocytes # (auto) 0.07 K/uL (0.00-0.02); Immature Granulocytes % (auto) 0.7 %; Lymphocytes # (auto) 0.68 K/uL (1.2-3.4); Lymphocytes % (auto) 6.9 %; Mean Corpuscular Hemoglobin 30.3 pg (25-34); Mean Corpuscular Hgb Conc 34.4 g/dL (32-36); Mean Corpuscular Volume 88.1 fL (80-100); Mean Platelet Volume 11.3 fL (7.4-10.4); Monocytes # (auto) 0.63 K/uL (0.11-0.59); Monocytes % (auto) 6.4 %; Neutrophils # (auto) 8.44 K/uL (1.4-6.5); Neutrophils % (auto) 85.9 %; Platelet Count 143 K/uL (130-400); RDW Coefficient of Variation 13.2 % (11.5-14.5); RDW Standard Deviation 42.7 fL (36.4-46.3); Red Blood Count 4.46 M/uL (4.7-6.1); White Blood Count 9.83 K/uL (4.8-10.8)
[2022-02-23 08:06] LABS: Albumin Globulin Ratio 1.1 (0.9-2); Albumin Level 3.1 gm/dl (3.4-5.0); BUN Creatinine Ratio 14.5 (10-20); Bilirubin,Total 0.5 mg/dl (0.2-1.0); Calcium 7.8 mg/dl (8.5-10.1); Creatinine Clr Calc Pharmacy 57.6 ml/min; Est GFR (African American) 54.1 ml/min; Est GFR (Non-African American) 46.6 ml/min; Globulin 2.9 gm/dl (2.5-4.0); Magnesium 1.7 mg/dl (1.7-2.4); Potassium 3.6 mmol/L (3.5-5.1)
[2022-02-23] MEDS: FAMOTIDINE 10 MG TABLET PO SCH ×2 (08:13→20:07)
[2022-02-23] MEDS ORDERED: cefTRIAXone SODIUM 2,000 MG in DEXTROSE 5% 50 ML IV SCH (09:00)
[2022-02-23] MEDS: LEVALBUTEROL 1.25MG/0.5ML NEB NEB SCH ×3 (10:07→19:03)
[2022-02-23] MEDS: AZITHROMYCIN 500 MG in DEXTROSE 5% 250 ML IV SCH (10:13)
[2022-02-23] MEDS: guaiFENesin 600 MG TABCR PO SCH ×2 (11:36→20:07)
[2022-02-23] MEDS: LEVALBUTEROL HCL 0.63 MG/3 ML NEB NEB PRN ×2 (12:28→19:03)
[2022-02-23] MEDS ORDERED: CALCIUM CARBONATE 500 MG CHEWABLE TAB PO PRN (13:55)
--- NOTE | 2022-02-23 14:38 | Hospitalist Progress Note ---
Date of Service February 23, 2022 Assessment & Plan (1) Sepsis: (2) RLL pneumonia: (3) Hypoxia: (4) BARB (acute kidney injury): (5) Nausea & vomiting: Plan: Per admitting service notes with addendum: Patient meets sepsis criteria per current CMS guidelines Upon admission patient was tachycardic, tachypneic and elevated white blood cell count of 14k. Patient also reports fever of 104 for the last 3 days at home. Source: Right lower lobe pneumonia Lactic acid, Lyme, SARS-CoV-2, influenza AMB and RSV all negative He received 2 L of IV fluid along with broad-spectrum antibiotics with IV Rocephin and oral doxycycline Sepsis Right lower lobe pneumonia Hypoxia Admit to PCU Continue broad-spectrum antibiotics with IV Rocephin and IV azithromycin As needed xopenex nebulizer Supplemental oxygen as needed Encourage pulmonary toilet with incentive spirometry Aspiration precautions Procalcitonin pending, urine for Legionella ordered, mrsa swab blood cultures pending 02/23 CT chest: Showing right lower lobe consolidation Negative for COVID-19, influenza, RSV Hemodynamically stable, still having fever of 39 Acidosis resolved Sputum culture: Pending Blood cultures: Pending Continue ceftriaxone plus azithromycin Add Mucinex, incentive spirometry Monitor closely BARB cr 1.56, likely 2/2 to dehydration due to infection/sepsis Creatinine increased from 1.4, to 1.7 Continue IV NSS Monitor renal function daily Hematuria, microscopic Repeat UA on further work-up as outpatient Nausea & Vomiting obtain KUB: No obstruction continue anti emetics, IVF clear liquid diet for now, can advance as tolerated DVT ppx: SQ Lovenox Dispo: PCU FULL CODE PCP: Marleni, given pt otherwise healthy he has not seen PCP in a long time, will need OP follow up plan of care discussed with patient in detail and at length all questions answered He is understanding, agreeable, comfortable with the plan of care Admission and Anticipated Discharge Date Admission Date: February 22, 2022 Subjective Follow-up for sepsis, right lower lobe pneumonia, acute kidney injury, etc. Seen resting in bed, comfortable, not in distress, somewhat weak Oriented x3 Answers questions appropriately States he feels somewhat better than yesterday Still has dry cough, no shortness of breath No fevers or chills Denies headache, dizziness, chest pain, palpitations, dizziness abdominal pain, nausea vomiting, diarrhea Denies dysuria or any other urinary symptoms, flank pain No other symptoms Review of Systems Review of Systems: all noted and negative except for above Physical Exam Physical Exam: General- oriented x 3, not in distress, speaks in sentences with no effort or accessory muscle use Head- atraumatic Eyes- PERRL, EOMI, anicteric ENT- oropharynx clear Neck- supple, no JVD, no adenopathy, no thyromegaly; carotids +2/2, no bruits appreciated Lungs-positive crackles on the right mid to base, no wheezing Clear on the left Good air entry bilaterally Heart- normal rate, regular rhythm; no murmur, no gallop, no rub appreciated Abdomen- normal bowel sounds, nondistended, soft, nontender, no masses or hepatosplenomegaly No CVA tenderness Extremities- no pretibial edema, no calf tenderness; peripheral pulses intact Neuro- alert, oriented x 3; CN 2-12 grossly intact; motor 5/5 bilaterally;se nsation 100% on all extremities; no other gross focal neurologic deficits Skin- warm & dry Results & Data Results & Data ([facility]) Vital Signs (Past 12 Hours) Vital Signs Temp Pulse Pulse Pulse Resp BP Pulse Ox 02/23/22 12:30 99 H 18 94 02/23/22 11:44 39.1 C H 104 H 20 98/58 L 95 02/23/22 10:09 96 H 16 93 02/23/22 08:17 39 C H 115 H 115 H 18 109/69 93 02/23/22 08:12 39 C H 02/23/22 07:25 104 H 02/23/22 03:23 39.1 C H 114 H 16 109/68 93 all noted and reviewed including below
[2022-02-23] MEDS ORDERED: PIPERACILLIN/TAZOBACTAM 4.5 GM in DEXTROSE 5% 100 ML IV SCH (15:45)
[2022-02-23] MEDS ORDERED: PIPERACILLIN/TAZOBACTAM 3.375 GM in DEXTROSE 5% 100 ML IV ONE (16:00)
[2022-02-23] MEDS: IBUPROFEN 200 MG TAB PO PRN (16:23)
[2022-02-23] MEDS: ENOXAPARIN INJ 40 MG/0.4 ML SYR SQ SCH (21:44)
[2022-02-23] MEDS: PIPERACILLIN/TAZOBACTAM 3.375 GM in DEXTROSE 5% 100 ML IV SCH (21:44)
[2022-02-24] MEDS: LEVALBUTEROL 1.25MG/0.5ML NEB NEB SCH ×4 (00:01→20:11)
[2022-02-24] MEDS: SODIUM CHLORIDE 0.9% 1000ML 1,000 ML IV SCH ×3 (05:19→20:47)
[2022-02-24] MEDS: PIPERACILLIN/TAZOBACTAM 3.375 GM in DEXTROSE 5% 100 ML IV SCH ×3 (05:19→21:17)
[2022-02-24] MEDS: ACETAMINOPHEN 325 MG TAB PO PRN ×3 (05:19→22:28)
[2022-02-24] MEDS: BENZONATATE 100 MG CAPSULE PO PRN ×2 (05:29→20:40)
[2022-02-24] MEDS: LEVALBUTEROL HCL 0.63 MG/3 ML NEB NEB PRN ×3 (07:25→20:11)
[2022-02-24] MEDS: IBUPROFEN 200 MG TAB PO PRN (07:54)
[2022-02-24 08:30] LABS: Creatinine Clr Calc Pharmacy 69.3 ml/min; Est GFR (African American) 66.5 ml/min; Est GFR (Non-African American) 57.3 ml/min
[2022-02-24] MEDS: guaiFENesin 600 MG TABCR PO SCH ×2 (08:57→20:39)
[2022-02-24] MEDS: FAMOTIDINE 10 MG TABLET PO SCH (08:57)
[2022-02-24 09:35] LABS: Basophils # (auto) 0.01 K/uL (0-0.2); Basophils % (auto) 0.1 %; Hematocrit (blood only) 35.9 % (42-52); Hemoglobin 12.3 g/dL (14.0-18.0); Immature Granulocytes # (auto) 0.09 K/uL (0.00-0.02); Immature Granulocytes % (auto) 1.1 %; Lymphocytes # (auto) 0.55 K/uL (1.2-3.4); Lymphocytes % (auto) 6.6 %; Mean Corpuscular Hemoglobin 29.7 pg (25-34); Mean Corpuscular Hgb Conc 34.3 g/dL (32-36); Mean Corpuscular Volume 86.7 fL (80-100); Mean Platelet Volume 11.6 fL (7.4-10.4); Monocytes # (auto) 0.49 K/uL (0.11-0.59); Monocytes % (auto) 5.9 %; Neutrophils # (auto) 7.14 K/uL (1.4-6.5); Neutrophils % (auto) 86.3 %; Platelet Count 156 K/uL (130-400); RDW Coefficient of Variation 13.5 % (11.5-14.5); RDW Standard Deviation 43.5 fL (36.4-46.3); Red Blood Count 4.14 M/uL (4.7-6.1); White Blood Count 8.28 K/uL (4.8-10.8)
[2022-02-24 09:51] LABS: BUN Creatinine Ratio 10.9 (10-20); Calcium 7.7 mg/dl (8.5-10.1); Creatinine Clr Calc Pharmacy 64.5 ml/min; Est GFR (African American) 60.8 ml/min; Est GFR (Non-African American) 52.5 ml/min
[2022-02-24] MEDS: AZITHROMYCIN 500 MG in DEXTROSE 5% 250 ML IV SCH (10:35)
--- NOTE | 2022-02-24 18:36 | Hospitalist Progress Note ---
Date of Service February 24, 2022 Assessment & Plan (1) Sepsis: (2) RLL pneumonia: (3) Hypoxia: (4) BARB (acute kidney injury): (5) Nausea & vomiting: Plan: Per admitting service notes with addendum: Patient meets sepsis criteria per current CMS guidelines Upon admission patient was tachycardic, tachypneic and elevated white blood cell count of 14k. Patient also reports fever of 104 for the last 3 days at home. Source: Right lower lobe pneumonia Lactic acid, Lyme, SARS-CoV-2, influenza AMB and RSV all negative He received 2 L of IV fluid along with broad-spectrum antibiotics with IV Rocephin and oral doxycycline Sepsis Right lower lobe pneumonia Hypoxia Admit to PCU Continue broad-spectrum antibiotics with IV Rocephin and IV azithromycin As needed xopenex nebulizer Supplemental oxygen as needed Encourage pulmonary toilet with incentive spirometry Aspiration precautions Procalcitonin pending, urine for Legionella ordered, mrsa swab blood cultures pending 02/24 CT chest: Showing right lower lobe consolidation Negative for COVID-19, influenza, RSV Fever curve trending down Sputum culture: Pending Blood cultures: Pending Continue Zosyn plus azithromycin day #2 Mucinex, incentive spirometry Monitor closely BARB cr 1.56, likely 2/2 to dehydration due to infection/sepsis Creatinine increased from 1.4, to 1.7 Creatinine 1.4 Continue IV NSS Monitor renal function daily Hematuria, microscopic Repeat UA on further work-up as outpatient Nausea & Vomiting obtain KUB: No obstruction continue anti emetics, IVF Advance diet DVT ppx: SQ Lovenox Dispo: PCU FULL CODE PCP: Marleni, given pt otherwise healthy he has not seen PCP in a long time, will need OP follow up plan of care discussed with patient in detail and at length all questions answered He is understanding, agreeable, comfortable with the plan of care Admission and Anticipated Discharge Date Admission Date: February 22, 2022 Subjective Follow-up for sepsis, pneumonia, etc. Seen resting in bed, comfortable, not in distress Patient appears to be brighter today States he feels somewhat improved compared to yesterday Still having dry cough, able to produce yellow sputum No chest pain, palpitations, dizziness, fevers or chills Reports urine is brown tinge, no dysuria No other symptoms Review of Systems Review of Systems: all noted and negative except for above Physical Exam Physical Exam: General- oriented x 3, not in distress, speaks in sentences with no effort or accessory muscle use Eyes- anicteric Neck- no JVD Lungs-mild crackles at the right base, clear on the left No wheezing noted Heart- normal rate, regular rhythm; no murmurs Abdomen- normal bowel sounds, nondistended, soft, nontender Extremities- no pretibial edema, no calf tenderness Neuro- alert, oriented x 3; no gross focal neurologic deficits Skin- warm & dry Results & Data Results & Data ([facility]) Vital Signs (Past 12 Hours) Vital Signs Temp Pulse Pulse Resp BP Pulse Ox 02/24/22 16:11 37.9 C H 82 20 119/71 95 02/24/22 16:08 86 02/24/22 13:31 71 18 97 02/24/22 10:53 37.7 C H 82 18 123/73 93 02/24/22 07:46 37.9 C H 113 H 18 108/70 94 02/24/22 07:26 83 18 90 02/24/22 07:20 102 H all noted and reviewed including below
--- NOTE | 2022-02-24 19:26 | Electrocardiogram Report ---
Test Reason : Blood Pressure : / mmHG Vent. Rate : 102 BPM Atrial Rate : 102 BPM P-R Int : 156 ms QRS Dur : 090 ms QT Int : 312 ms P-R-T Axes : 055 039 012 degrees QTc Int : 406 ms Sinus tachycardia Otherwise normal ECG When compared with ECG of 22-FEB-2022 15:08, No significant change was found Confirmed by Arya Medrano ([id number]) on 02/24/2022 7:26:24 PM Referred By: REFERRED SELF Confirmed By:Arya Medrano
[2022-02-24] MEDS: POTASSIUM CHLORIDE CRTAB 20 MEQ TABCR PO SCH (20:38)
[2022-02-24] MEDS: FAMOTIDINE 20 MG TAB PO SCH (20:39)
[2022-02-24] MEDS: ENOXAPARIN INJ 40 MG/0.4 ML SYR SQ SCH (21:06)
[2022-02-24] MEDS ORDERED: MELATONIN 3 MG TAB PO PRN (21:29)
[2022-02-25] MEDS: LEVALBUTEROL 1.25MG/0.5ML NEB NEB SCH ×5 (00:15→19:09)
[2022-02-25] MEDS ORDERED: LEVALBUTEROL HCL 1.25 MG/3 ML NEB ONE (01:27)
[2022-02-25] MEDS: SODIUM CHLORIDE 0.9% 1000ML 1,000 ML IV SCH ×4 (03:05→22:50)
[2022-02-25] MEDS: ACETAMINOPHEN 325 MG TAB PO PRN ×2 (03:05→23:54)
[2022-02-25] MEDS ORDERED: methylPREDNISolone 20 MG in SYRINGE 0 ML IV STA (03:18)
[2022-02-25] MEDS ORDERED: BENZONATATE 100 MG CAPSULE PO ONE (03:20)
--- NOTE | 2022-02-25 03:21 | Communication Note ---
Date of Service: February 25, 2022 Patient with hemoptysis hemoptysis as per RN. CT chest Antitussives as needed H&H Hold Lovenox for now May need pulmonology opinion.
[2022-02-25] MEDS: PIPERACILLIN/TAZOBACTAM 3.375 GM in DEXTROSE 5% 100 ML IV SCH ×3 (04:24→21:44)
[2022-02-25 05:03] LABS: Basophils # (auto) 0.02 K/uL (0-0.2); Basophils % (auto) 0.2 %; Eosinophils # (auto) 0.06 K/uL (0-0.5); Eosinophils % (auto) 0.7 %; Hematocrit (blood only) 36.1 % (42-52); Hemoglobin 12.4 g/dL (14.0-18.0); Immature Granulocytes # (auto) 0.07 K/uL (0.00-0.02); Immature Granulocytes % (auto) 0.8 %; Lymphocytes # (auto) 1.02 K/uL (1.2-3.4); Mean Corpuscular Hemoglobin 29.5 pg (25-34); Mean Corpuscular Hgb Conc 34.3 g/dL (32-36); Monocytes # (auto) 0.95 K/uL (0.11-0.59); Monocytes % (auto) 11.2 %; Neutrophils # (auto) 6.36 K/uL (1.4-6.5); Neutrophils % (auto) 75.1 %; Platelet Count 181 K/uL (130-400); RDW Coefficient of Variation 13.6 % (11.5-14.5); RDW Standard Deviation 42.8 fL (36.4-46.3); White Blood Count 8.48 K/uL (4.8-10.8)
[2022-02-25 05:27] LABS: BUN Creatinine Ratio 8.3 (10-20); Calcium 7.8 mg/dl (8.5-10.1); Creatinine Clr Calc Pharmacy 75.6 ml/min; Est GFR (African American) 73.8 ml/min; Est GFR (Non-African American) 63.7 ml/min; Magnesium 1.8 mg/dl (1.7-2.4); Potassium 3.5 mmol/L (3.5-5.1)
--- NOTE | 2022-02-25 07:58 | CT Scan Report ---
CT chest diagnostic wo con CT DOSE: 471.07 mGy.cm CLINICAL HISTORY: 46 years-old Male with hemoptysis. Acute hemoptysis TECHNIQUE: Multiaxial CT images of the chest were performed without contrast. A dose lowering techni que was utilized adhering to the principles of ALARA. COMPARISON: CTA chest 02/22/2022 FINDINGS: Unremarkable thyroid. Mildly enlarged mediastinal and hilar lymph nodes include subcarinal adenopathy measuring up to 1.1 cm, progressed from the prior study. Mild stranding throughout the med iastinum is new from the prior exam. Trace pericardial effusion. The heart is upper limits of normal in size. No thoracic aortic aneurysm. Small pleural effusions. There is no pneumothorax. There is new intralobular septal thickening of the lungs, right greater than left. Progressively worsened dense airspace consolidation with air broncho grams noted throughout the entire right lower lobe, now with extension into the right upper and middl e lobes. Mild scattered groundglass opacities throughout the left lung. Central airways are generally patent. Mild right-sided mucous plugging suggested. Stranding is noted within the posterior mediastinum with mild esophageal wall thickening. Hepatic adarsh atosis. Unremarkable soft tissues. No acute fracture. IMPRESSION: 1. Progressively worsened dense airspace consolidation with intermixed groundglass opacities involvin g the right lower lobe with new opacities of the right upper and middle lobes. Findings are suggestiv e of multifocal pneumonia. Correlate clinically to exclude aspiration. 2. Cardiomegaly with pulmonary edema and small pleural effusions. 3. Progressively worsened likely reactive mediastinal and hilar lymphadenopathy. 4. Hepatic steatosis. ACT 112: Negative or not required by law. Electronically signed by: Isidro Campo M.D. 02/25/2022 7:56 AM
[2022-02-25] MEDS: FAMOTIDINE 20 MG TAB PO SCH ×2 (08:59→20:22)
[2022-02-25] MEDS: POTASSIUM CHLORIDE CRTAB 20 MEQ TABCR PO SCH ×2 (08:59→20:22)
[2022-02-25] MEDS: guaiFENesin 600 MG TABCR PO SCH ×2 (08:59→20:22)
[2022-02-25] MEDS: DOXYCYCLINE HYCLATE 100 MG CAP PO SCH ×2 (10:00→20:22)
[2022-02-25] MEDS ORDERED: COUGH DROP (SUGAR FREE) LOZ 24 LOZ/1 BOX BUCCAL ONE (19:13)
--- NOTE | 2022-02-25 19:18 | Hospitalist Progress Note ---
Date of Service February 25, 2022 Assessment & Plan (1) Sepsis: (2) RLL pneumonia: (3) Hypoxia: (4) BARB (acute kidney injury): (5) Nausea & vomiting: Plan: Per admitting service notes with addendum: Patient meets sepsis criteria per current CMS guidelines Upon admission patient was tachycardic, tachypneic and elevated white blood cell count of 14k. Patient also reports fever of 104 for the last 3 days at home. Source: Right lower lobe pneumonia Lactic acid, Lyme, SARS-CoV-2, influenza AMB and RSV all negative He received 2 L of IV fluid along with broad-spectrum antibiotics with IV Rocephin and oral doxycycline Sepsis Right Lower Lobe Pneumonia Hypoxia Admit to PCU Continue broad-spectrum antibiotics with IV Rocephin and IV azithromycin As needed xopenex nebulizer Supplemental oxygen as needed Encourage pulmonary toilet with incentive spirometry Aspiration precautions Procalcitonin pending, urine for Legionella ordered, mrsa swab blood cultures pending 02/26 CT chest: Showing right lower lobe consolidation Negative for COVID-19, influenza, RSV afebrile today Sputum culture: negative Blood cultures: negative Continue Zosyn plus Doxycycline #2 Mucinex, incentive spirometry Monitor closely Hemoptysis repeat CT Chest: progressing multifocal pneumonia will consult Pulmonology hold Lovenox Dysphagia Speech therapy evaluation moist, easy to chew diet BARB cr 1.56, likely 2/2 to dehydration due to infection/sepsis Creatinine increased from 1.4, to 1.7 improving Continue IV NSS Creatinine 1.3 Monitor renal function daily Hematuria microscopic Repeat UA on further work-up as outpatient Nausea & Vomiting obtain KUB: No obstruction continue anti emetics, IVF Advanced diet DVT ppx: SQ Lovenox-- held for hemoptysis Dispo: PCU FULL CODE PCP: Marleni, given pt otherwise healthy he has not seen PCP in a long time, will need OP follow up plan of care discussed with patient in detail and at length all questions answered He is understanding, agreeable, comfortable with the plan of care Admission and Anticipated Discharge Date Admission Date: February 22, 2022 Subjective ff up for pneumonia, etc seen resting in bed, not in distress had 1 tablespoon of hemoptysis earlier this AM states he is having a hard time talking still has cough also reports some dysphagia with solids no abdominal pain poor appetite no other symptoms Review of Systems Review of Systems: all noted and negative except for above Physical Exam Physical Exam: General- oriented x 3, not in distress, speaks in sentences with no effort or accessory muscle use Eyes- anicteric Neck- no JVD Lungs- (+) crackles on the r mid-base clear on the left Heart- normal rate, regular rhythm; no murmurs Abdomen- normal bowel sounds, nondistended, soft, nontender Extremities- no pretibial edema, no calf tenderness Neuro- alert, oriented x 3; no gross focal neurologic deficits Skin- warm & dry Results & Data Results & Data ([facility]) Vital Signs (Past 12 Hours) Vital Signs Temp Pulse Resp BP BP Pulse Ox 02/25/22 19:06 37.6 C H 80 18 125/79 90 02/25/22 16:38 36.6 C 71 16 116/72 96 02/25/22 12:36 86 16 93 02/25/22 11:01 37.2 C 86 17 125/77 91 02/25/22 08:00 37.4 C 82 20 114/67 91 02/25/22 07:17 81 20 90 all noted and reviewed including below
[2022-02-26] MEDS: LEVALBUTEROL 1.25MG/0.5ML NEB NEB SCH ×4 (00:50→19:45)
[2022-02-26] MEDS: SODIUM CHLORIDE 0.9% 1000ML 1,000 ML IV SCH (05:18)
[2022-02-26] MEDS: PIPERACILLIN/TAZOBACTAM 3.375 GM in DEXTROSE 5% 100 ML IV SCH ×3 (05:18→21:30)
[2022-02-26] MEDS: POTASSIUM CHLORIDE CRTAB 20 MEQ TABCR PO SCH ×2 (08:27→20:02)
[2022-02-26] MEDS: FAMOTIDINE 20 MG TAB PO SCH ×2 (08:28→20:03)
[2022-02-26] MEDS: guaiFENesin 600 MG TABCR PO SCH (08:28)
[2022-02-26] MEDS: DOXYCYCLINE HYCLATE 100 MG CAP PO SCH (09:17)
[2022-02-26 10:01] LABS: Basophils # (auto) 0.02 K/uL (0-0.2); Basophils % (auto) 0.2 %; Eosinophils # (auto) 0.06 K/uL (0-0.5); Eosinophils % (auto) 0.6 %; Hematocrit (blood only) 37.7 % (42-52); Immature Granulocytes # (auto) 0.22 K/uL (0.00-0.02); Immature Granulocytes % (auto) 2.2 %; Mean Corpuscular Hemoglobin 30.2 pg (25-34); Mean Corpuscular Hgb Conc 34.5 g/dL (32-36); Mean Corpuscular Volume 87.7 fL (80-100); Mean Platelet Volume 10.8 fL (7.4-10.4); Monocytes # (auto) 1.08 K/uL (0.11-0.59); Monocytes % (auto) 10.8 %; Neutrophils # (auto) 7.72 K/uL (1.4-6.5); Neutrophils % (auto) 77.2 %; Platelet Count 268 K/uL (130-400); RDW Coefficient of Variation 14.1 % (11.5-14.5); RDW Standard Deviation 45.7 fL (36.4-46.3)
[2022-02-26 10:26] LABS: BUN Creatinine Ratio 10.2 (10-20); Calcium 8.2 mg/dl (8.5-10.1); Creatinine Clr Calc Pharmacy 81.7 ml/min; Est GFR (Non-African American) 67.3 ml/min; Potassium 3.9 mmol/L (3.5-5.1)
--- NOTE | 2022-02-26 10:39 | XRay Report ---
XR chest 1V portable CLINICAL HISTORY: Increasing SOB TECHNIQUE: Single frontal radiograph of the chest was obtained. Comparison: Comparison is made to chest radiograph 02/22/2022 FINDINGS: No lines and tubes are seen. The cardiomediastinal silhouette is normal. Airspace opacities are seen most prominent in the right mid and lower lung. Prominence of the pulmonary vasculature is seen. Smal l right pleural effusion is seen. IMPRESSION: Right mid and lower lung airspace opacities may represent atelectasis, pneumonia, and/or aspiration. Mild pulmonary edema. Small right and possible small pleural effusion. ACT 112: Negative or not required by law. Electronically signed by: Cortez Helton M.D. 02/26/2022 10:38 AM
[2022-02-26 10:57] LABS: Base Excess ABG -4.9 mEq/L (-9-1.8); HCO3 ABG 18 mmol/L (19-24); Oxygen Saturation ABG 88.8 % (90-95); PCO2 ABG 28 mmHg (35-46); PO2 ABG 54 mmHg (80-95); pH ABG 7.42 (7.35-7.45)
[2022-02-26 10:59] LABS: Allen Test Pos (Pos)
[2022-02-26] MEDS ORDERED: PANTOPRAZOLE BOLUS/DRIP 1 EA IV STA (10:59)
[2022-02-26] MEDS ORDERED: FUROSEMIDE INJ 20 MG/2 ML VIAL IV ONE (10:59)
--- NOTE | 2022-02-26 11:02 | Pulmonary Consultation ---
Date of Consultation February 26, 2022 Assessment & Plan (1) Hypoxia: (2) RLL pneumonia: (3) Cough with hemoptysis: (4) DVT prophylaxis: Attending: Dr. Segura Impression: This is a 46-year-old male with no prior pulmonary history other than bronchitis several years ago. Patient began feeling ill last Friday. morning he awoke with fever of 104 Fahrenheit. Patient was seen by urgent care. He was then seen in the emergency department and admitted for pneumonia. He was started on ceftriaxone. Chest x-ray showed right lower lobe consolidation. Patient developed hypoxia and a CT scan of the chest was completed which showed progressive pneumonia on the right side. No history of aspiration. Patient is antibiotics were escalated to doxycycline and Zosyn. Last night, patient developed hemoptysis. This morning, patient is hypoxic at 74% on room air. He corrects to 92% on Oxymask. Arterial blood gas shows no hypercapnia. Normal pH. Decreased PCO2 at 54. Recommendations: 1. Right lower lobe pneumonia: * Doubt aspiration given age and no history of dysphagia * Patient currently on doxycycline and Zosyn. Sputum culture was negative. Elevated procalcitonin * Apparent UTI with BARB on presentation. * Legionella antigen is positive - D/C azithromycin and start Levofloxacin X 10 days. QtC is 406 * Patient has developed hemoptysis with drop in hemoglobin * Will continue antibiotics at this time. Hold anticoagulation. * Will discuss bronchoscopy for microbiologic samples as well as to investigate source of hemoptysis with community affairs director * Would recommend trending procalcitonin * Continue to monitor on telemetry 2. Hemoptysis: * Patient now with 12 hours of bloody sputum. No significant large clots * Patient does have drop in hemoglobin which is indeterminate for the hemopty sis. Patient also with black watery stool * Presented with dirty urine. Legionella is pending * Consider bronchoscopy once respiratory status improved. 3. Tachypnea/Hypoxia: * Will continue monitoring continuous pulse oximetry * ABG with normal pH and pCO2. pO2 54. * Patient is tachypnea corrected with administration of oxygen to maintain SaO2 greater than 90% * Trial of BiPAP/Hi-chantal O2 * If no improvement, patient agreeable to intubation Thank you for including us in the care of this patient. Please refer to attending addendum for further recommendations. Supervising Physician Co-Signing Physician Notes I saw and evaluated the patient with Gunnar Fox, and agree with findings and plan as documented in the note. 46-year-old male presented to the hospital with complaints of shortness of breath and fever. He was requiring more oxygen and started to have hemoptysis for which pulmonary were consulted At the time of examination patient was saturating 94% not in any respiratory distress on high flow 30 L, 40% FiO2 He denies any hemoptysis in the last 12 hours. Overall he stated he is feeling better and BiPAP helped him a lot Denies any exposure to any water source Lifetime non-smoker. No vaping. No history of asthma Constitutional: No acute distress HEENT: EOMI, PERRLA Respiratory system: Decreased air entry bilaterally, more decreased on the right side, no wheeze, no rhonchi CVS: S1-S2 positive, no murmurs or gallops Abdomen: Soft, nontender, nondistended, positive bowel sounds x4 Extremities: +2 pulses bilaterally radialis/ dorsalis pedis, no cyanosis, no edema Neuro: Awake alert oriented x3 Psych: Normal mood and affect G/U: Positive [place] Plan: In/out: +2 L at 6 PM today, urine output 1900 mL. +15 L since coming to the hospital. CT chest 02/25/2022 personally reviewed: Interlobular thickening appreciated in the upper lobes bilaterally more on the right side, Dense consolidative process appreciated in the right lower lobe as well as the posterior segment of the right upper lobe Mediastinal lymphadenopathy appreciated Small bilateral pleural effusion Patient's urine Legionella antigen was positive. Would recommend changing azithromycin to levofloxacin and complete the course of 14 days. Would recommend to get in touch with Department of Health to make them aware that there is a Legionella case in the community. Given the interlobular thickening I would also recommend to have 2D echo done Patient will need a repeat CT chest in 3 months to make sure there is decrease in the size of the right lower lobe infiltrate Avoid flutter valve. Would recommend [id number] antitussive medication guaifenesin-DM to prevent hemoptysis Okay to use BiPAP nightly and as needed shortness of breath Drop in hemoglobin is likely from the IV fluids that he has been getting. I will give another 40 mg of Lasix today. Continue giving diuretics as needed following that Case was discussed with YUAN Pace Pulmonary continue to follow Please note the above document was generated using voice recognition software. It may contain grammatical, syntax or spelling errors.Any formal questions or concerns about the content, text or information contained within the body of this dictation should be directly addressed to the provider for clarification. History of Present Illness Reason for Consultation: Hemoptysis, progressive pneumonia Attending Physician: Chris Alvarez MD History of Present Illness Attending: Dr. Segura This is a 46-year-old male that has no previous pulmonary history. He does report that at one time he had bronchitis which was a long time for improvement. He has no history of smoking. No vaping history. No marijuana use. No exposure to toxic fumes or vocational exposure. Patient reports that last Friday he was feeling under the weather. He went home and slept all night but woke up the next morning and was short of breath. He developed a cough which seem to worsen. He presented to urgent care and reports that he was started on antibiotic which she does not know what it is and sent home. He continued to have fevers with a T-max of 104 Fahrenheit. He then presented to the emergency department on 02/22/2022 and was admitted. Chest x- ray initially showed right lower lobe consolidation. He developed furthering hypoxia and a CT scan of the chest was completed which revealed extensive right- sided pneumonia. Antibiotics were escalated from ceftriaxone to doxycycline and Zosyn. Patient continues to have hypoxia and cough Last night the patient reports that he began having hemoptysis. He has a basin in front of him with significant amounts of blood mixed with sputum. There is no evidence of clotting. Patient's hemoglobin has dropped from approximately 15-13. I do not think that this drop is solely due to hemoptysis. Patient reports that he has also developed black watery stool. Primary team is investigating for infectious nature stool. On arrival in the room, patient was found to be 74% on room air. A nasal cannula was on his bed and was not being used. Patient was placed on nasal cannula and required 6 L to get up to 89%. Patient had conversational dyspnea with tachypnea. Patient was then converted to Oxymask at 6 L and recovered quickly to 92% with respiratory rate dropping to 20 breaths/min. Sputum culture collected 02/23/2022 shows moderate normal david Procalcitonin collected 02/22/2022 is 3.38 Allergies Allergy/AdvReac Type Severity Reaction Status Date / Time No Known Allergies Allergy Unknown Verified 02/22/22 19:57 Home Medications Medication Instructions Recorded Confirmed Type No Known Home Medications 02/22/22 02/22/22 History Patient History Medical History No pertinent past medical history Surgical History No pertinent past surgical history Family History Father Diabetes Mother Migraines Social History Smoking Status: Never smoker Hx Alcohol Use: Yes Alcohol type: beer, wine and hard liquor Hx Substance Use: No Preferred Language: [place] Communication Ability: Effective Plastic Surgeon Required: No Beliefs That Will Affect Care: None marital status: Current Living Situation: Spouse current occupational status: employed current occupation: [employer] Other Information That Helps Us Care for You: No Feels Safe at Home: Yes Safety Concerns: Feels Safe At This Time Assistive Devices: Contacts and Glasses Review of Systems Review of Systems: A total of 10 systems was reviewed and is negative other than as listed in the HPI Physical Exam Physical Exam: GENERAL : Moderate acute distress. Found to be hypoxic on room air at 74% on entry into room EYES: No icterus, gaze conjugate NOSE: No evidence of epistaxis MOUTH: No lesions or candidiasis NECK: Supple LUNGS: Crackles throughout. Patient with bronchospasm throughout. Tachypneic initially with a rate of 42 breaths/min. Improved to 20 breaths/min with supplemental oxygen HEART: Regular, rate controlled ABDOMEN: Soft, NT, ND, BS Present EXTREMITIES: No LE edema, pedal pulses intact NEURO: A&OX3 Results & Data Results & Data ([facility]) Vital Signs (Past 12 Hours) Vital Signs Temp Pulse Pulse Resp BP Pulse Ox 02/26/22 08:48 37.5 C 96 H 22 145/84 H 89 L 02/26/22 07:05 76 18 85 L 02/26/22 03:05 37.3 C 72 20 133/77 93 02/26/22 00:50 82 20 93 02/25/22 23:26 77 02/25/22 23:15 37.8 C H 86 20 133/74 92 Critical Care Results & Data Vital Signs (Past 12 Hours) Vital Signs Temp Pulse Pulse Resp BP Pulse Ox 02/26/22 08:48 37.5 C 96 H 22 145/84 H 89 L 02/26/22 07:05 76 18 85 L 02/26/22 03:05 37.3 C 72 20 133/77 93 02/26/22 00:50 82 20 93 02/25/22 23:26 77 02/25/22 23:15 37.8 C H 86 20 133/74 92 Lab & Micro Results (Past 24 Hours) RBC 4.30 M/uL (4.7-6.1) L 02/26/22 WBC 10.00 K/uL (4.8-10.8) 02/26/22 Hgb 12.9 g/dL (14.0-18.0) L 02/26/22 Hct 37.0 % (42-52) L 02/26/22 MCV 87.7 fL (80-100) 02/26/22 MCH 30.2 pg (25-34) 02/26/22 MCHC 34.5 g/dL (32-36) 02/26/22 RDW Standard Deviation 45.7 fL (36.4-46.3) 02/26/22 RDW Coefficient of Variation 14.1 % (11.5-14.5) 02/26/22 Plt Count 268 K/uL (130-400) 02/26/22 MPV 10.8 fL (7.4-10.4) H 02/26/22 Neutrophils (%) (Auto) 77.2 % 02/26/22 Lymphocytes (%) (Auto) 9.0 % 02/26/22 Monocytes # (Auto) 1.08 K/uL (0.11-0.59) H 02/26/22 Eosinophils # (Auto) 0.06 K/uL (0-0.5) 02/26/22 Immature Granulocyte % (Auto) 2.2 % 02/26/22 Neutrophils # (Auto) 7.72 K/uL (1.4-6.5) H 02/26/22 Lymphocytes # (Auto) 0.90 K/uL (1.2-3.4) L 02/26/22 Monocytes # (Auto) 1.08 K/uL (0.11-0.59) H 02/26/22 Eosinophils # (Auto) 0.06 K/uL (0-0.5) 02/26/22 Basophils # (Auto) 0.02 K/uL (0-0.2) 02/26/22 Immature Granulocyte # (Auto) 0.22 K/uL (0.00-0.02) H 02/26/22 Na 138 mmol/L (136-145) 02/26/22 K 3.9 mmol/L (3.5-5.1) 02/26/22 Cl 111 mmol/L (98-107) H 02/26/22 CO2 20 mmol/L (21-32) L 02/26/22 Anion Gap 7 (3-11) 02/26/22 BUN 13 mg/dl (6-23) 02/26/22 Creatinine 1.27 mg/dl (0.6-1.4) 02/26/22 Estimated GFR ( Amer) 78.0 ml/min 02/26/22 Estimated GFR (Non-Af Amer) 67.3 ml/min 02/26/22 BUN/Creatinine Ratio 10.2 (10-20) 02/26/22 Glu 97 mg/dl (70-99(Fasting)) 02/26/22 Ca 8.2 mg/dl (8.5-10.1) L 02/26/22 Calcium Level 8.2 mg/dl (8.5-10.1) L 02/26/22 09:47 02/26/22 Arterial Blood pH 7.42 (7.35-7.45) 02/26/22 10:43 02/26/22 Arterial Blood Partial Pressure CO2 28 mmHg (35-46) L 02/26/22 10:43 02/26/22 Arterial Blood Partial Pressure O2 54 mmHg (80-95) L 02/26/22 10:43 02/26/22 Arterial Blood HCO3 18 mmol/L (19-24) L 02/26/22 10:43 02/26/22 Arterial Blood Base Excess -4.9 mEq/L (-9-1.8) 02/26/22 10:43 02/26/22 Arterial Blood Oxygen Saturation 88.8 % (90-95) L 02/26/22 10:43 02/26/22 Blood Gas Oxygen Given 5.5L 02/26/22 10:43 02/26/22 Yariel Test Pos (Pos) 02/26/22 10:43 02/26/22 Microbiology 02/23/22 01:45 Gram Stain - Final Sputum, Expectorated Sputum Culture - Final Moderate normal david. 02/23/22 04:57 Urine Culture - Final Urine,Clean Catch No growth - less than 1,000 colonies/mL. Diagnostic Findings (Past 24 Hours) Chest X-Ray 02/26/22 10:16 XR chest 1V portable CLINICAL HISTORY: Increasing SOB TECHNIQUE: Single frontal radiograph of the chest was obtained. Comparison: Comparison is made to chest radiograph 02/22/2022 FINDINGS: No lines and tubes are seen. The cardiomediastinal silhouette is normal. Airspace opacities are seen most prominent in the right mid and lower lung. Prominence of the pulmonary vasculature is seen. Small right pleural effusion is seen. IMPRESSION: Right mid and lower lung airspace opacities may represent atelectasis, pneumonia, and/or aspiration. Mild pulmonary edema. Small right and possible small pleural effusion. ACT 112: Negative or not required by law. Electronically signed by: Cortez Helton M.D. 02/26/2022 10:38 AM I & O Totals 24 Hours 02/25/22 02/26/22 02/27/22 06:59 06:59 06:59 Intake Total 3745.000 / 3745.000 5262.5 / 5262.5 115 / 115 Output Total 1075 / 1075 1650 / 1650 Balance 2670.000 / 2670.000 3612.5 / 3612.5 115 / 115 Cumulative 02/22/22 14:00 thru 02/26/22 09:18 Intake Total 20820.417 Output Total 2540 Balance 71414.417 RT Ventilator Mngmt (Last Documented) Ventilator Ordered Settings Respiratory Rate 22 02/26/22 08:48 Ventilator - PT Measurements Respiratory Rate 22 PG Care Time/CCT Total # of Minutes Spent Total Time Spent with Patient: Total time spent is greater than 50% in coordination of care (as documented) at patient's floor/unit and/or counseling patient:50 minutes Coding Level of Care Code 22301 Inpt Consult Level 5 Diagnoses Hypoxia R09.02 RLL pneumonia J18.9 Cough with hemoptysis R04.2 DVT prophylaxis Z29.9 Time Spent (min) 50
[2022-02-26] MEDS ORDERED: PANTOprazole 80 MG in DEXTROSE 5% 100 ML IV ONE (11:15)
[2022-02-26 11:27] LABS: Hematocrit (blood only) 37.5 % (42-52); Hemoglobin 12.7 g/dL (14.0-18.0)
[2022-02-26] MEDS: PANTOprazole 40 MG in DEXTROSE 5% 100 ML IV SCH ×3 (11:48→19:31)
--- NOTE | 2022-02-26 13:05 | Hospitalist Progress Note ---
Date of Service February 26, 2022 Assessment & Plan (1) Sepsis: (2) RLL pneumonia: (3) Hypoxia: (4) BARB (acute kidney injury): (5) Nausea & vomiting: Plan: Per admitting service notes with addendum: Patient meets sepsis criteria per current CMS guidelines Upon admission patient was tachycardic, tachypneic and elevated white blood cell count of 14k. Patient also reports fever of 104 for the last 3 days at home. Source: Right lower lobe pneumonia Lactic acid, Lyme, SARS-CoV-2, influenza AMB and RSV all negative He received 2 L of IV fluid along with broad-spectrum antibiotics with IV Rocephin and oral doxycycline Sepsis Right Lung Multifocal Pneumonia Acute Hypoxic Respiratory Failure Hemoptysis fever gradually resolved, WBC also normalized developed 1 episode of hemoptysis over the weekend CT chest: Showing right lower lobe consolidation--> repeat CT chest: progression of multifocal pneumonia today, (+) desaturation, significant hemoptysis Urine: (+) Legionella Negative for COVID-19, influenza, RSV Sputum culture: negative Blood cultures: negative CXR: Right mid and lower lung airspace opacities may represent atelectasis, pneumonia, and/or aspiration. Mild pulmonary edema. Small right and possible small pleural effusion. placed on CPAP (unable to tolerate Bipap) Continue Zosyn Day 3 plus Azithromycin Day 3 Lasix 40mg IV one dose given Mucinex, incentive spirometry transfer to ICU Hemoptysis repeat CT Chest: progressing multifocal pneumonia hold Lovenox possible Bronch today Melena r/o GI bleed placed on Protonix drip H&H q6h x 3 NPO Dysphagia mostly to solids Speech therapy evaluation NPO for now BARB cr 1.56, likely 2/2 to dehydration due to infection/sepsis Creatinine increased from 1.4, to 1.7 improved to 1.3 d/c IV fluids Monitor renal function daily Hematuria microscopic Repeat UA on further work-up as outpatient Nausea & Vomiting obtain KUB: No obstruction continue anti emetics, IVF Advanced diet DVT ppx: SQ Lovenox-- held for hemoptysis Dispo: PCU FULL CODE PCP: Marleni, given pt otherwise healthy he has not seen PCP in a long time, will need OP follow up plan of care discussed with patient in detail and at length all questions answered He is understanding, agreeable, comfortable with the plan of care Admission and Anticipated Discharge Date Admission Date: February 22, 2022 Subjective ff up for R sided multifocal pneumonia, etc noted to be desaturating to 80s this morning seen sitting up in bed, on oxymask awake, alert, not in distress states he has dyspnea today also having significant hemoptysis no chest pain had some dysphagia to pills as well no other symptoms Review of Systems Review of Systems: all noted and negative except for above Physical Exam Physical Exam: General- oriented x 3, not in distress, speaks in sentences with no effort or accessory muscle use Eyes- anicteric Neck- no JVD Lungs- (+) crackles R lung clear on the left Heart- normal rate, regular rhythm; no murmurs Abdomen- normal bowel sounds, nondistended, soft, nontender Extremities- mild lower leg edema, no calf tenderness Neuro- alert, oriented x 3; no gross focal neurologic deficits Skin- warm & dry Results & Data Results & Data ([facility]) Vital Signs (Past 12 Hours) Vital Signs Temp Pulse Resp BP Pulse Ox 02/26/22 12:16 28 H 98 02/26/22 08:48 37.5 C 96 H 22 145/84 H 89 L 02/26/22 07:05 76 18 85 L 02/26/22 03:05 37.3 C 72 20 133/77 93 all noted and reviewed including below
[2022-02-26] MEDS ORDERED: AZITHROMYCIN 250 MG in DEXTROSE 5% 250 ML IV SCH (14:00)
[2022-02-26] MEDS ORDERED: guaiFENesin/DEXTROM SYRUP 200MG/20MG 10ML UDC PO PRN (16:50)
[2022-02-26 17:42] LABS: Hemoglobin 12.9 g/dL (14.0-18.0)
[2022-02-26] MEDS ORDERED: FUROSEMIDE 40 MG/4 ML VIAL IV ONE (18:23)
[2022-02-26] MEDS: levoFLOXacin/D5W 750 MG/150 ML BAG IV SCH (20:06)
[2022-02-26] MEDS ORDERED: ICU PROTOCOL FOR HYPERGLYCEMIA PRN (22:53)
[2022-02-26 23:19] LABS: Hematocrit (blood only) 35.9 % (42-52); Hemoglobin 12.7 g/dL (14.0-18.0)
[2022-02-27] MEDS: LEVALBUTEROL 1.25MG/0.5ML NEB NEB SCH ×4 (00:16→19:40)
[2022-02-27] MEDS: PANTOprazole 40 MG in DEXTROSE 5% 100 ML IV SCH ×2 (01:39→06:04)
[2022-02-27 05:00] LABS: Basophils # (auto) 0.02 K/uL (0-0.2); Basophils % (auto) 0.2 %; Eosinophils # (auto) 0.23 K/uL (0-0.5); Eosinophils % (auto) 2.6 %; Hematocrit (blood only) 35.7 % (42-52); Hemoglobin 12.4 g/dL (14.0-18.0); Immature Granulocytes # (auto) 0.19 K/uL (0.00-0.02); Immature Granulocytes % (auto) 2.1 %; Lymphocytes # (auto) 1.36 K/uL (1.2-3.4); Lymphocytes % (auto) 15.3 %; Mean Corpuscular Hemoglobin 30.5 pg (25-34); Mean Corpuscular Hgb Conc 34.7 g/dL (32-36); Mean Corpuscular Volume 87.7 fL (80-100); Mean Platelet Volume 10.6 fL (7.4-10.4); Monocytes # (auto) 1.11 K/uL (0.11-0.59); Monocytes % (auto) 12.5 %; Neutrophils # (auto) 5.96 K/uL (1.4-6.5); Neutrophils % (auto) 67.3 %; Platelet Count 291 K/uL (130-400); RDW Coefficient of Variation 13.6 % (11.5-14.5); RDW Standard Deviation 43.8 fL (36.4-46.3); Red Blood Count 4.07 M/uL (4.7-6.1); White Blood Count 8.87 K/uL (4.8-10.8)
[2022-02-27 05:41] LABS: Potassium 3.7 mmol/L (3.5-5.1)
[2022-02-27 05:42] LABS: Calcium 7.9 mg/dl (8.5-10.1); Creatinine Clr Calc Pharmacy 79.8 ml/min; Est GFR (African American) 75.8 ml/min; Est GFR (Non-African American) 65.4 ml/min; Magnesium 1.7 mg/dl (1.7-2.4); Phosphorus 2.3 mg/dl (2.5-4.9)
[2022-02-27] MEDS: PIPERACILLIN/TAZOBACTAM 3.375 GM in DEXTROSE 5% 100 ML IV SCH (06:04)
[2022-02-27] MEDS: LEVALBUTEROL HCL 0.63 MG/3 ML NEB NEB PRN ×2 (07:38→13:38)
--- NOTE | 2022-02-27 07:45 | Critical Care Consultation ---
Date of Consultation February 27, 2022 Assessment & Plan (1) Hypoxia: (2) RLL pneumonia: (3) Cough with hemoptysis: (4) DVT prophylaxis: Attending: Dr. Segura Impression: This is a 46-year-old male with no prior pulmonary history other than bronchitis several years ago. Patient began feeling ill last Friday. morning he awoke with fever of 104 Fahrenheit. Patient was seen by urgent care. He was then seen in the emergency department and admitted for pneumonia. He was started on ceftriaxone. Chest x-ray showed right lower lobe consolidation. Patient developed hypoxia and a CT scan of the chest was completed which showed progressive pneumonia on the right side. No history of aspiration. Patient is antibiotics were escalated to doxycycline and Zosyn. Last night, patient developed hemoptysis. This morning, patient is hypoxic at 74% on room air. He corrects to 92% on Oxymask. Arterial blood gas shows no hypercapnia. Normal pH. Decreased PCO2 at 54. Recommendations: 1. Right lower lobe pneumonia: * Doubt aspiration given age and no history of dysphagia * Apparent UTI with BARB on presentation. * Legionella antigen is positive - D/C azithromycin and start Levofloxacin X 10 days. QtC is 406 * Will continue antibiotics at this time. Hold anticoagulation. * 40 mg prednisone daily x5 for severe pneumonia 2. Hemoptysis: Subjectively improved * Patient now with 12 hours of bloody sputum. No significant large clots * Consider bronchoscopy once respiratory status improved. 3. Tachypnea/Hypoxia: Improved significantly with high flow and decreasing oxygen requirement * Will continue monitoring continuous pulse oximetry * ABG with normal pH and pCO2. pO2 54. * Patient is tachypnea corrected with administration of oxygen to maintain SaO2 greater than 90% Hypoxia significantly improved stable for downgrade out of ICU. History of Present Illness Reason for Consultation: Acute hypoxic respiratory failure Requesting Physician: Chris Lyon Attending Physician: Araceli Capone MD History of Present Illness Patient is a 46-year-old male who awoke with fevers and was seen in the emergency department admitted for pneumonia. He has been on antibiotics and has had progressive hypoxia and increasing oxygen requirements. He was recently seen by pulmonary diagnosed with a right lower lobe pneumonia as well as hemoptysis after coughing and required BiPAP/high flow and was transferred to the ICU for further evaluation and management. Allergies Allergy/AdvReac Type Severity Reaction Status Date / Time No Known Allergies Allergy Unknown Verified 02/22/22 19:57 Home Medications Medication Instructions Recorded Confirmed Type No Known Home Medications 02/22/22 02/22/22 History Patient History Medical History No pertinent past medical history Surgical History No pertinent past surgical history Family History Father Diabetes Mother Migraines Social History Smoking Status: Never smoker Hx Alcohol Use: Yes Alcohol type: beer, wine and hard liquor Hx Substance Use: No Preferred Language: Korean Communication Ability: Effective Senior Service Aide Required: No Beliefs That Will Affect Care: None marital status: Current Living Situation: Spouse current occupational status: employed current occupation: [employer] Other Information That Helps Us Care for You: No Feels Safe at Home: Yes Safety Concerns: Feels Safe At This Time Assistive Devices: Contacts and Glasses Review of Systems Review of Systems: Exertional shortness of breath which is improved while on BiPAP. Reports dry mouth and throat while on BiPAP. Physical Exam Physical Exam: General: Alert. nontoxic. Skin: Warm, dry, Head: Atraumatic Ears, nose, mouth and throat: airway patent Cardiovascular: Normal peripheral perfusion Respiratory: no respiratory distress Gastrointestinal: Non distended Musculoskeletal: No deformity Results & Data Results & Data ([facility]) Vital Signs (Past 12 Hours) Vital Signs Pulse Pulse Resp BP Pulse Ox 02/27/22 06:00 69 30 H 147/82 H 94 02/27/22 05:00 57 L 24 126/79 96 02/27/22 04:00 56 L 18 135/84 92 02/27/22 03:37 62 20 91 02/27/22 03:00 59 L 28 H 147/74 H 93 02/27/22 02:01 94 H 42 H 143/81 H 97 02/27/22 01:00 62 34 H 149/78 H 95 02/27/22 00:17 73 40 H 95 02/27/22 00:00 62 28 H 93 02/26/22 23:01 75 82 26 H 124/83 95 02/26/22 22:00 91 H 29 H 144/84 H 94 02/26/22 21:00 87 24 131/86 93 02/26/22 20:00 94 H 15 141/80 H 90 02/26/22 19:48 73 18 98 Critical Care Results & Data Vital Signs (Past 12 Hours) Vital Signs Pulse Pulse Resp BP Pulse Ox 02/27/22 07:38 62 13 91 02/27/22 06:00 69 30 H 147/82 H 94 02/27/22 05:00 57 L 24 126/79 96 02/27/22 04:00 56 L 18 135/84 92 02/27/22 03:37 62 20 91 02/27/22 03:00 59 L 28 H 147/74 H 93 02/27/22 02:01 94 H 42 H 143/81 H 97 02/27/22 01:00 62 34 H 149/78 H 95 02/27/22 00:17 73 40 H 95 02/27/22 00:00 62 28 H 93 02/26/22 23:01 75 82 26 H 124/83 95 02/26/22 22:00 91 H 29 H 144/84 H 94 02/26/22 21:00 87 24 131/86 93 02/26/22 20:00 94 H 15 141/80 H 90 02/26/22 19:48 73 18 98 Lab & Micro Results (Past 24 Hours) RBC 4.07 M/uL (4.7-6.1) L 02/27/22 WBC 8.87 K/uL (4.8-10.8) 02/27/22 Hgb 12.4 g/dL (14.0-18.0) L 02/27/22 Hct 35.7 % (42-52) L 02/27/22 MCV 87.7 fL (80-100) 02/27/22 MCH 30.5 pg (25-34) 02/27/22 MCHC 34.7 g/dL (32-36) 02/27/22 RDW Standard Deviation 43.8 fL (36.4-46.3) 02/27/22 RDW Coefficient of Variation 13.6 % (11.5-14.5) 02/27/22 Plt Count 291 K/uL (130-400) 02/27/22 MPV 10.6 fL (7.4-10.4) H 02/27/22 Neutrophils (%) (Auto) 67.3 % 02/27/22 Lymphocytes (%) (Auto) 15.3 % 02/27/22 Monocytes # (Auto) 1.11 K/uL (0.11-0.59) H 02/27/22 Eosinophils # (Auto) 0.23 K/uL (0-0.5) 02/27/22 Immature Granulocyte % (Auto) 2.1 % 02/27/22 Neutrophils # (Auto) 5.96 K/uL (1.4-6.5) 02/27/22 Lymphocytes # (Auto) 1.36 K/uL (1.2-3.4) 02/27/22 Monocytes # (Auto) 1.11 K/uL (0.11-0.59) H 02/27/22 Eosinophils # (Auto) 0.23 K/uL (0-0.5) 02/27/22 Basophils # (Auto) 0.02 K/uL (0-0.2) 02/27/22 Immature Granulocyte # (Auto) 0.19 K/uL (0.00-0.02) H 02/27/22 Na 137 mmol/L (136-145) 02/27/22 K 3.7 mmol/L (3.5-5.1) 02/27/22 Cl 106 mmol/L (98-107) 02/27/22 CO2 25 mmol/L (21-32) 02/27/22 Anion Gap 6 (3-11) 02/27/22 BUN 13 mg/dl (6-23) 02/27/22 Creatinine 1.30 mg/dl (0.6-1.4) 02/27/22 Estimated GFR ( Amer) 75.8 ml/min 02/27/22 Estimated GFR (Non-Af Amer) 65.4 ml/min 02/27/22 BUN/Creatinine Ratio 10.0 (10-20) 02/27/22 Glu 96 mg/dl (70-99(Fasting)) 02/27/22 Ca 7.9 mg/dl (8.5-10.1) L 02/27/22 Phosphorus Level 2.3 mg/dl (2.5-4.9) L 02/27/22 Mg 1.7 mg/dl (1.7-2.4) 02/27/22 04:37 02/27/22 Calcium Level 7.9 mg/dl (8.5-10.1) L 02/27/22 04:37 02/27/22 Arterial Blood pH 7.42 (7.35-7.45) 02/26/22 10:43 02/26/22 Arterial Blood Partial Pressure CO2 28 mmHg (35-46) L 02/26/22 10:43 02/26/22 Arterial Blood Partial Pressure O2 54 mmHg (80-95) L 02/26/22 10:43 02/26/22 Arterial Blood HCO3 18 mmol/L (19-24) L 02/26/22 10:43 02/26/22 Arterial Blood Base Excess -4.9 mEq/L (-9-1.8) 02/26/22 10:43 02/26/22 Arterial Blood Oxygen Saturation 88.8 % (90-95) L 02/26/22 10:43 02/26/22 Blood Gas Oxygen Given 5.5L 02/26/22 10:43 02/26/22 Yariel Test Pos (Pos) 02/26/22 10:43 02/26/22 Diagnostic Findings (Past 24 Hours) Chest X-Ray 02/26/22 10:16 XR chest 1V portable CLINICAL HISTORY: Increasing SOB TECHNIQUE: Single frontal radiograph of the chest was obtained. Comparison: Comparison is made to chest radiograph 02/22/2022 FINDINGS: No lines and tubes are seen. The cardiomediastinal silhouette is normal. Airspace opacities are seen most prominent in the right mid and lower lung. Prominence of the pulmonary vasculature is seen. Small right pleural effusion is seen. IMPRESSION: Right mid and lower lung airspace opacities may represent atelectasis, pneumonia, and/or aspiration. Mild pulmonary edema. Small right and possible small pleural effusion. ACT 112: Negative or not required by law. Electronically signed by: Cortez Helton M.D. 02/26/2022 10:38 AM I & O Totals 24 Hours 02/26/22 02/27/22 02/28/22 06:59 06:59 06:59 Intake Total 5262.5 / 5262.5 2210.166 / 2210.166 Output Total 1650 / 1650 7000 / 7000 Balance 3612.5 / 3612.5 -4789.834 / -4789.834 Cumulative 02/22/22 14:00 thru 02/27/22 06:15 Intake Total 04275.583 Output Total 9926 Balance 30230.583 RT Ventilator Mngmt (Last Documented) Ventilator Ordered Settings Respiratory Rate 13 02/27/22 07:38 Fraction of Inspired Oxygen 40 02/27/22 07:38 Ventilator - PT Measurements Respiratory Rate 13 Coding Level of Care Code 42110 Inpt Consult Level 4 Diagnoses Hypoxia R09.02 RLL pneumonia J18.9 Cough with hemoptysis R04.2 DVT prophylaxis Z29.9
[2022-02-27] MEDS ORDERED: predniSONE 20 MG TAB PO SCH (09:00)
--- NOTE | 2022-02-27 09:14 | XRay Report ---
XR chest 1V portable CLINICAL HISTORY: f/u COMPARISON STUDY: Chest CT February 25, 2022. Chest radiograph February 26, 2022. FINDINGS: Lung volumes are normal. There is no pneumothorax. Small right pleural effusion is again no derrick. Extensive right mid and lower lung consolidation is again noted with air bronchograms. Interstit ial thickening has improved. IMPRESSION: 1. Persistent extensive right lung consolidation. This favors pneumonia however pulmonary hemorrhage could appear similar. 2. Slight improvement in interstitial thickening which likely reflects pulmonary edema. 3. Small right pleural effusion. No pneumothorax. ACT 112: Negative or not required by law. Electronically signed by: Jhonny Ramehs M.D. 02/27/2022 9:13 AM
--- NOTE | 2022-02-27 09:30 | Electrocardiogram Report ---
Test Reason : Blood Pressure : / mmHG Vent. Rate : 075 BPM Atrial Rate : 075 BPM P-R Int : 140 ms QRS Dur : 080 ms QT Int : 404 ms P-R-T Axes : 000 057 019 degrees QTc Int : 451 ms Poor data quality, interpretation may be adversely affected Normal sinus rhythm Normal ECG When compared with ECG of 23-FEB-2022 05:48, No significant change Confirmed by Renard Champion ([id number]) on 02/27/2022 9:29:37 AM Referred By: REFERRED SELF Confirmed By:Renard Champion
[2022-02-27] MEDS: FAMOTIDINE 20 MG TAB PO SCH (09:41)
[2022-02-27] MEDS: POTASSIUM CHLORIDE CRTAB 20 MEQ TABCR PO SCH (09:55)
[2022-02-27] MEDS: PANTOprazole 40 MG TAB PO SCH ×2 (10:46→21:11)
--- NOTE | 2022-02-27 11:21 | Pulmonology Progress Note ---
Date of Service February 27, 2022 Assessment & Plan (1) Hypoxia: (2) RLL pneumonia: (3) Cough with hemoptysis: (4) DVT prophylaxis: Plan: Attending: Dr. Segura Impression: This is a 46-year-old male with no prior pulmonary history other than bronchitis several years ago. Patient began feeling ill last Friday. morning he awoke with fever of 104 Fahrenheit. Patient was seen by urgent care. He was then seen in the emergency department and admitted for pneumonia. He was started on ceftriaxone. Chest x-ray showed right lower lobe consolidation. Patient developed hypoxia and a CT scan of the chest was completed which showed progressive pneumonia on the right side. No history of aspiration. Arterial blood gas shows no hypercapnia. Normal pH. Decreased PCO2 at 54. Recommendations: 1. Right lower lobe pneumonia: * Doubt aspiration given age and no history of dysphagia * Apparent UTI with BARB on presentation. * Legionella antigen is positive - D/C azithromycin and started Levofloxacin X 14 days. QtC is 406. (Today is day #2/14 of levofloxacin) * Will continue antibiotics at this time. Hold anticoagulation. 2. Hemoptysis: Subjectively improved * Primarily resolved. Patient with 1 clot overnight. Continue to monitor 3. Tachypnea/Hypoxia: Improved significantly with high flow and decreasing oxygen requirement * Secondary to Legionella pneumonia * Now improved * ABG with normal pH and pCO2. pO2 54. * Patient is now weaned down to nasal cannula. Respiratory rate 22. * Continue to monitor patient's cumulative ins and outs. Total output yesterday 6.6 L. Continue to monitor with Braswell catheter Hypoxia significantly improved stable for downgrade out of ICU. Thank you for including us in the care of this patient. We will continue to follow along with you for now. Admission and Anticipated Discharge Date Admission Date: February 22, 2022 Supervising Physician Co-Signing Physician Notes I saw and evaluated the patient with Gunnar Fox, and agree with findings and plan as documented in the note. CT chest 02/25/2022 personally reviewed: Interlobular thickening appreciated in the upper lobes bilaterally more on the right side, Dense consolidative process appreciated in the right lower lobe as well as the posterior segment of the right upper lobe Mediastinal lymphadenopathy appreciated Small bilateral pleural effusion Patient seen and bedside. No acute distress, no adverse events overnight He was saturating 95% on 4 L nasal cannula Denies any hemoptysis since last night. Denies any chest pain. Still complains of loose bowel movements. Denies any exposure to any water source Lifetime non-smoker. No vaping. No history of asthma Constitutional: No acute distress HEENT: EOMI, PERRLA Respiratory system: Decreased air entry bilaterally, no wheeze, no rhonchi, positive crackles bilateral lower lobes CVS: S1-S2 positive, no murmurs or gallops Abdomen: Soft, nontender, nondistended, positive bowel sounds x4 Extremities: +2 pulses bilaterally radialis/ dorsalis pedis, no cyanosis, no edema Neuro: Awake alert oriented x3 Psych: Normal mood and affect G/U: No Braswell Plan: In/out: -5.7 L, urine output 7 L Chest x-ray from today shows improvement in the vascular congestion. Right lower lobe opacity still persist. Continue with levofloxacin for total of 14 days. Continue titrate off oxygen to keep oxygen saturation around 92% Okay to discontinue prednisone. Case was discussed with RN. Pulmonary continue to follow Please note the above document was generated using voice recognition software. It may contain grammatical, syntax or spelling errors.Any formal questions or concerns about the content, text or information contained within the body of this dictation should be directly addressed to the provider for clarification. Subjective Attending: Dr. Segura Patient was seen and examined at bedside in room 104. He is doing considerably better today. Only 1 episode of hemoptysis last night. This was approximately a quarter size bloody clot. There is no further hemoptysis mixed with sputum. Overall the patient slept well. He denies recurrent fever. He has no chest pain or tightness. He has been de-escalated to nasal cannula 6 L/min from BiPAP and high flow supplemental oxygen. Review of Systems Review of Systems: A total of 10 systems was reviewed and is negative other than as listed in the HPIA total of 10 systems was reviewed and is negative other than as listed in the HPIA total of 10 systems was reviewed and is negative other than as listed in the HPI Physical Exam Physical Exam: GENERAL : No acute distress EYES: No icterus, gaze conjugate NOSE: No evidence of epistaxis MOUTH: No lesions or candidiasis NECK: Supple LUNGS: Patient still with diminished breath sounds but more air movement than yesterday. Patient does have some crackles at the bases. No evidence of overt bronchospasm. No rhonchi appreciated HEART: Regular, rate controlled ABDOMEN: Soft, NT, ND, BS Present EXTREMITIES: No LE edema, pedal pulses intact and equal bilaterally NEURO: A&OX3 Results & Data Results & Data ([facility]) Vital Signs (Past 12 Hours) Vital Signs Temp Pulse Pulse Resp BP Pulse Ox 02/27/22 09:50 69 20 95 02/27/22 09:00 56 L 23 140/78 93 02/27/22 08:30 66 30 H 92 02/27/22 08:00 37.0 C 62 30 H 155/81 H 91 02/27/22 07:42 61 21 92 02/27/22 07:38 62 13 91 02/27/22 07:30 78 24 90 02/27/22 07:00 69 38 H 155/92 H 93 02/27/22 06:30 71 30 H 93 02/27/22 06:00 69 30 H 147/82 H 94 02/27/22 05:00 57 L 24 126/79 96 02/27/22 04:00 56 L 18 135/84 92 02/27/22 03:37 62 20 91 02/27/22 03:00 59 L 28 H 147/74 H 93 02/27/22 02:01 94 H 42 H 143/81 H 97 02/27/22 01:00 62 34 H 149/78 H 95 02/27/22 00:17 73 40 H 95 02/27/22 00:00 62 28 H 93 Critical Care Results & Data Vital Signs (Past 12 Hours) Vital Signs Temp Pulse Pulse Resp BP Pulse Ox 02/27/22 09:50 69 20 95 02/27/22 09:00 56 L 23 140/78 93 02/27/22 08:30 66 30 H 92 02/27/22 08:00 37.0 C 62 30 H 155/81 H 91 02/27/22 07:42 61 21 92 02/27/22 07:38 62 13 91 02/27/22 07:30 78 24 90 02/27/22 07:00 69 38 H 155/92 H 93 02/27/22 06:30 71 30 H 93 02/27/22 06:00 69 30 H 147/82 H 94 02/27/22 05:00 57 L 24 126/79 96 02/27/22 04:00 56 L 18 135/84 92 02/27/22 03:37 62 20 91 02/27/22 03:00 59 L 28 H 147/74 H 93 02/27/22 02:01 94 H 42 H 143/81 H 97 02/27/22 01:00 62 34 H 149/78 H 95 02/27/22 00:17 73 40 H 95 02/27/22 00:00 62 28 H 93 Lab & Micro Results (Past 24 Hours) RBC 4.07 M/uL (4.7-6.1) L 02/27/22 WBC 8.87 K/uL (4.8-10.8) 02/27/22 Hgb 12.4 g/dL (14.0-18.0) L 02/27/22 Hct 35.7 % (42-52) L 02/27/22 MCV 87.7 fL (80-100) 02/27/22 MCH 30.5 pg (25-34) 02/27/22 MCHC 34.7 g/dL (32-36) 02/27/22 RDW Standard Deviation 43.8 fL (36.4-46.3) 02/27/22 RDW Coefficient of Variation 13.6 % (11.5-14.5) 02/27/22 Plt Count 291 K/uL (130-400) 02/27/22 MPV 10.6 fL (7.4-10.4) H 02/27/22 Neutrophils (%) (Auto) 67.3 % 02/27/22 Lymphocytes (%) (Auto) 15.3 % 02/27/22 Monocytes # (Auto) 1.11 K/uL (0.11-0.59) H 02/27/22 Eosinophils # (Auto) 0.23 K/uL (0-0.5) 02/27/22 Immature Granulocyte % (Auto) 2.1 % 02/27/22 Neutrophils # (Auto) 5.96 K/uL (1.4-6.5) 02/27/22 Lymphocytes # (Auto) 1.36 K/uL (1.2-3.4) 02/27/22 Monocytes # (Auto) 1.11 K/uL (0.11-0.59) H 02/27/22 Eosinophils # (Auto) 0.23 K/uL (0-0.5) 02/27/22 Basophils # (Auto) 0.02 K/uL (0-0.2) 02/27/22 Immature Granulocyte # (Auto) 0.19 K/uL (0.00-0.02) H 02/27/22 Na 137 mmol/L (136-145) 02/27/22 K 3.7 mmol/L (3.5-5.1) 02/27/22 Cl 106 mmol/L (98-107) 02/27/22 CO2 25 mmol/L (21-32) 02/27/22 Anion Gap 6 (3-11) 02/27/22 BUN 13 mg/dl (6-23) 02/27/22 Creatinine 1.30 mg/dl (0.6-1.4) 02/27/22 Estimated GFR ( Amer) 75.8 ml/min 02/27/22 Estimated GFR (Non-Af Amer) 65.4 ml/min 02/27/22 BUN/Creatinine Ratio 10.0 (10-20) 02/27/22 Glu 96 mg/dl (70-99(Fasting)) 02/27/22 Ca 7.9 mg/dl (8.5-10.1) L 02/27/22 Phosphorus Level 2.3 mg/dl (2.5-4.9) L 02/27/22 Mg 1.7 mg/dl (1.7-2.4) 02/27/22 04:37 02/27/22 Calcium Level 7.9 mg/dl (8.5-10.1) L 02/27/22 04:37 02/27/22 Diagnostic Findings (Past 24 Hours) Chest X-Ray 02/27/22 07:00 XR chest 1V portable CLINICAL HISTORY: f/u COMPARISON STUDY: Chest CT February 25, 2022. Chest radiograph February 26, 2022. FINDINGS: Lung volumes are normal. There is no pneumothorax. Small right pleural effusion is again noted. Extensive right mid and lower lung consolidation is again noted with air bronchograms. Interstitial thickening has improved. IMPRESSION: 1. Persistent extensive right lung consolidation. This favors pneumonia however pulmonary hemorrhage could appear similar. 2. Slight improvement in interstitial thickening which likely reflects pulmonary edema. 3. Small right pleural effusion. No pneumothorax. ACT 112: Negative or not required by law. Electronically signed by: Jhonny Ramesh M.D. 02/27/2022 9:13 AM I & O Totals 24 Hours 02/26/22 02/27/22 02/28/22 06:59 06:59 06:59 Intake Total 5262.5 / 5262.5 2210.166 / 2210.166 455 / 455 Output Total 1650 / 1650 7000 / 7000 601 / 601 Balance 3612.5 / 3612.5 -4789.834 / -4789.834 -146 / -146 Cumulative 02/22/22 14:00 thru 02/27/22 10:55 Intake Total 82436.583 Output Total 58444 Balance 87832.583 RT Ventilator Mngmt (Last Documented) Ventilator Ordered Settings Respiratory Rate 20 02/27/22 09:50 Fraction of Inspired Oxygen 40 02/27/22 09:00 Ventilator - PT Measurements Respiratory Rate 20 COVID-19 Results Results COVID-19 Adm Lab Results: RBC 4.07 M/uL (4.7-6.1) L 02/27/22 WBC 8.87 K/uL (4.8-10.8) 02/27/22 Hgb 12.4 g/dL (14.0-18.0) L 02/27/22 Hct 35.7 % (42-52) L 02/27/22 Plt Count 291 K/uL (130-400) 02/27/22 Neutrophils (%) (Auto) 67.3 % 02/27/22 Lymphocytes (%) (Auto) 15.3 % 02/27/22 Monocytes # (Auto) 1.11 K/uL (0.11-0.59) H 02/27/22 Eosinophils # (Auto) 0.23 K/uL (0-0.5) 02/27/22 Immature Granulocyte % (Auto) 2.1 % 02/27/22 Neutrophils # (Auto) 5.96 K/uL (1.4-6.5) 02/27/22 Lymphocytes # (Auto) 1.36 K/uL (1.2-3.4) 02/27/22 Monocytes # (Auto) 1.11 K/uL (0.11-0.59) H 02/27/22 Eosinophils # (Auto) 0.23 K/uL (0-0.5) 02/27/22 Basophils # (Auto) 0.02 K/uL (0-0.2) 02/27/22 Immature Granulocyte # (Auto) 0.19 K/uL (0.00-0.02) H 02/27/22 Na 137 mmol/L (136-145) 02/27/22 K 3.7 mmol/L (3.5-5.1) 02/27/22 Cl 106 mmol/L (98-107) 02/27/22 CO2 25 mmol/L (21-32) 02/27/22 Anion Gap 6 (3-11) 02/27/22 BUN 13 mg/dl (6-23) 02/27/22 Creatinine 1.30 mg/dl (0.6-1.4) 02/27/22 BUN/Creatinine Ratio 10.0 (10-20) 02/27/22 Glucose Level 96 mg/dl (70-99(Fasting)) 02/27/22 Ca 7.9 mg/dl (8.5-10.1) L 02/27/22 Phosphorus Level 2.3 mg/dl (2.5-4.9) L 02/27/22 Procalcitonin 0.93 ng/ml (0-0.5) H 02/27/22 Micro Respiratory Specimen 02/23/[address] 02/25/22 Chest X-Ray 02/27/22 PG Care Time/CCT Total # of Minutes Spent Total Time Spent with Patient: Total time spent is greater than 50% in coordination of care (as documented) at patient's floor/unit and/or counseling patient: 20 Coding Level of Care Code 91958 Subseq Hosp Care Lvl 2 Diagnoses Hypoxia R09.02 RLL pneumonia J18.9 Cough with hemoptysis R04.2 DVT prophylaxis Z29.9
[2022-02-27] MEDS: levoFLOXacin/D5W 750 MG/150 ML BAG IV SCH (17:09)
--- NOTE | 2022-02-27 17:09 | Hospitalist Progress Note ---
Date of Service February 27, 2022 Assessment & Plan (1) Sepsis: (2) RLL pneumonia: (3) Hypoxia: (4) BARB (acute kidney injury): Plan: Right Lung Multifocal Pneumonia Acute Hypoxic Respiratory Failure Hemoptysis Present on admission with fever and SOB Patient meets sepsis criteria per current CMS guidelines Upon admission patient was tachycardic, tachypneic and elevated white blood cell count of 14k. Patient also reports fever of 104 for the last 3 days at home. Source: Right lower lobe pneumonia CTA chest showed Right lower lobe airspace opacity may represent aspiration and/or pneumonia. No evidence of pulmonary embolism. Lactic acid, Lyme, SARS-CoV-2, influenza AMB and RSV all negative Urine: (+) Legionella Procalcitonin trending down Abx changed to Levaquin to complete a total of 14 days course Continue lasix IV prn Continue to titrate off oxygen Patient will need a repeat CT chest in 3 months to make sure there is decrease in the size of the right lower lobe infiltrate Continue incentive spirometry Will d/c steroid Will transfer to PCU Hemoptysis Repeat CT Chest: progressing multifocal pneumonia Continue to hold Lovenox Avoid flutter valve due to hemoptysis Melena r/o GI bleed placed on Protonix drip hgb stable NPO Dysphagia mostly to solids Speech therapy evaluation Continue regular diet Stable BARB Creatinine 1.3 today received IVF resolved Hematuria microscopic Repeat UA on further work-up as outpatient Nausea & Vomiting obtain KUB: No obstruction continue anti emetics, IVF Advanced diet DVT ppx: SQ Lovenox-- held for hemoptysis Dispo: PCU FULL CODE PCP: Marleni, given pt otherwise healthy he has not seen PCP in a long time, will need OP follow up Will transfer out of the ICU plan of care discussed with patient in detail and at length all questions answered Admission and Anticipated Discharge Date Admission Date: February 22, 2022 Subjective Pt was seen and examined for follow up of SOB Lying in bed with no acute distress Pt said that he feels much better Currently he is on 4L oxygen supplement Denies any chest pain, palpitation, dizziness and fever Review of Systems Review of Systems: All systems reviewed & are unremarkable except as noted in Subjective Physical Exam Physical Exam: General- No acute distress Head- atraumatic Eyes- PERRL, EOMI, ENT- oropharynx clear Neck- supple, no JVD Lungs- +diminished BS Heart- regular rhythm; no murmur Abdomen- normal bowel sounds, soft, nontender Extremities- no calf tenderness Neuro- alert, oriented x 3; PERRL, EOMI; no facial palsy; no dysarthria Skin- warm & dry Results & Data Results & Data ([facility]) Vital Signs (Past 12 Hours) Vital Signs Temp Pulse Pulse Resp BP Pulse Ox 02/27/22 16:54 100 H 02/27/22 16:00 63 2 L 143/95 H 92 02/27/22 15:00 60 19 144/85 H 94 02/27/22 14:05 77 22 93 02/27/22 14:00 74 35 H 135/83 91 02/27/22 13:00 90 26 H 127/77 92 02/27/22 12:00 91 H 30 H 134/73 90 02/27/22 11:00 88 36 H 127/69 94 02/27/22 10:00 66 18 145/85 H 96 02/27/22 09:50 69 20 95 02/27/22 09:00 56 L 23 140/78 93 02/27/22 08:30 66 30 H 92 02/27/22 08:00 37.0 C 62 30 H 155/81 H 91 02/27/22 07:42 61 21 92 02/27/22 07:38 62 13 91 02/27/22 07:30 78 24 90 02/27/22 07:00 69 38 H 155/92 H 93 02/27/22 06:30 71 30 H 93 02/27/22 06:00 69 30 H 147/82 H 94
[2022-02-28] MEDS: LEVALBUTEROL 1.25MG/0.5ML NEB NEB SCH ×4 (00:21→19:17)
[2022-02-28 05:54] LABS: Hematocrit (blood only) 35.6 % (42-52); Hemoglobin 12.2 g/dL (14.0-18.0); Mean Corpuscular Hemoglobin 30.1 pg (25-34); Mean Corpuscular Hgb Conc 34.3 g/dL (32-36); Mean Corpuscular Volume 87.9 fL (80-100); Mean Platelet Volume 10.5 fL (7.4-10.4); Platelet Count 383 K/uL (130-400); RDW Coefficient of Variation 13.7 % (11.5-14.5); RDW Standard Deviation 44.1 fL (36.4-46.3); Red Blood Count 4.05 M/uL (4.7-6.1); White Blood Count 11.26 K/uL (4.8-10.8)
[2022-02-28 06:25] LABS: BUN Creatinine Ratio 11.8 (10-20); Calcium 8.1 mg/dl (8.5-10.1); Est GFR (African American) 84.4 ml/min; Est GFR (Non-African American) 72.8 ml/min; Phosphorus 3.6 mg/dl (2.5-4.9); Potassium 3.6 mmol/L (3.5-5.1)
[2022-02-28] MEDS: LEVALBUTEROL HCL 0.63 MG/3 ML NEB NEB PRN ×3 (06:58→19:10)
--- NOTE | 2022-02-28 09:20 | Electrocardiogram Report ---
Test Reason : Blood Pressure : / mmHG Vent. Rate : 069 BPM Atrial Rate : 069 BPM P-R Int : 146 ms QRS Dur : 082 ms QT Int : 422 ms P-R-T Axes : 038 050 020 degrees QTc Int : 452 ms Poor data quality, interpretation may be adversely affected Normal sinus rhythm with sinus arrhythmia Normal ECG When compared with ECG of 27-FEB-2022 06:24, No significant change was found Confirmed by Renard Champion ([id number]) on 02/28/2022 9:19:36 AM Referred By: REFERRED SELF Confirmed By:Renard Champion
[2022-02-28] MEDS: PANTOprazole 40 MG TAB PO SCH ×2 (09:39→20:46)
--- NOTE | 2022-02-28 14:15 | Pulmonology Progress Note ---
Date of Service February 28, 2022 Assessment & Plan (1) Hypoxia: (2) RLL pneumonia: (3) Cough with hemoptysis: (4) DVT prophylaxis: Plan: Attending: Dr. Segura Impression: This is a 46-year-old male with no prior pulmonary history other than bronchitis several years ago. Patient began feeling ill last Friday. morning he awoke with fever of 104 Fahrenheit. Patient was seen by urgent care. He was then seen in the emergency department and admitted for pneumonia. He was started on ceftriaxone. Chest x-ray showed right lower lobe consolidation. Patient developed hypoxia and a CT scan of the chest was completed which showed progressive pneumonia on the right side. No history of aspiration. Arterial blood gas shows no hypercapnia. Normal pH. Decreased PCO2 at 54. Patient has now been downgraded from intensive care unit was transf erred to medical telemetry into room 289 Recommendations: 1. Right lower lobe pneumonia: * Doubt aspiration given age and no history of dysphagia * Apparent UTI with BARB on presentation. * Legionella antigen is positive - D/C'd azithromycin and started Levofloxacin X 14 days. QtC is 406. (Today is day #3/14 of levofloxacin) * Patient has talked to the department of health regarding Legionella * Recommend infectious disease consult for follow-up and length of treatment of antibiotics * Patient was instructed to continue to use incentive spirometry on discharge. This is very important that this be reinforced with the patient at the time of discharge 2. Hemoptysis: Subjectively improved * Resolved. No further hemoptysis for 36 hours 3. Tachypnea/Hypoxia: Improved significantly with high flow and decreasing oxygen requirement * Resolved * Continue supplemental oxygen as needed to maintain SaO2 greater than 90%. Patient will require supplemental oxygen on discharge * I did walk the patient. He required 2 L of supplemental oxygen to maintain SaO2 greater than 88% at rest. Patient was then ambulated on room air and initially had SaO2 greater than 90% for approximately 125 feet. Saturations then began to fall. He was able to walk 175 feet before needing to rest. Patient then desaturated to 85% and corrected to 92% with 2 L within 3 minutes of rest. He had no lightheadedness or dizziness. He had no air hunger. Hypoxia significantly improved stable for downgrade out of ICU. Thank you for including us in the care of this patient. Patient is okay for discharge home with supplemental oxygen per the pulmonary service. He is scheduled to see Dr. Segura on 03/20/2022 at 3:45 PM in the pulmonary clinic. He should have a chest x-ray prior to this visit. I will place the chest x-ray order in the ambulatory system. Admission and Anticipated Discharge Date Admission Date: February 22, 2022 Supervising Physician Co-Signing Physician Notes I saw and evaluated the patient with Gunnar Fox, and agree with findings and plan as documented in the note. Patient seen and examined at bedside. No acute distress, no delusions overnight. He was on 2.5 to nasal cannula saturating around 92% without any respiratory stress Denies any hemoptysis Feeling better Denies any exposure to any water source Lifetime non-smoker. No vaping. No history of asthma Constitutional: No acute distress HEENT: EOMI, PERRLA Respiratory system:Decreased air entry bilaterally, no wheeze, no rhonchi, positive crackles bilateral lower lobes CVS: S1-S2 positive, no murmurs or gallops Abdomen: Soft, nontender, nondistended, positive bowel sounds x4 Extremities: +2 pulses bilaterally radialis/ dorsalis pedis, no cyanosis, no edema Neuro: Awake alert oriented x3 Psych: Normal mood and affect G/U:No [place] Plan: Continue with levofloxacin for total of 14 days. Continue titrate off oxygen to keep oxygen saturation around 92% Patient clinically doing better. No further recommendation from pulmonary will sign off. Please call directly with any questions Please note the above document was generated using voice recognition software. It may contain grammatical, syntax or spelling errors.Any formal questions or concerns about the content, text or information contained within the body of this dictation should be directly addressed to the provider for clarification. Subjective Attending: Dr. Segura Patient seen and examined at bedside in room 289. He has been downgraded from intensive care unit. He still requires supplemental oxygen but has had no further hemoptysis. Patient is anxious to discuss discharge planning. At this time he has spoken to the Department of Health. He is improving daily with antibiotics. No further fevers. Overall he is improving well Review of Systems Review of Systems: A total of 10 systems was reviewed and is negative other than as listed above in the HPI Physical Exam Physical Exam: GENERAL : No acute distress EYES: No icterus, gaze conjugate NOSE: No evidence of epistaxis MOUTH: No lesions or candidiasis NECK: Supple LUNGS: Continues to have some decrease in breath sounds at the right base. Otherwise clear to auscultation HEART: Regular, rate controlled ABDOMEN: Soft, NT, ND, BS Present EXTREMITIES: No LE edema, pedal pulses intact NEURO: A&OX3 Results & Data Results & Data ([facility]) Vital Signs (Past 12 Hours) Vital Signs Temp Pulse Pulse Resp BP BP Pulse Ox 02/28/22 12:34 73 16 99 02/28/22 11:51 36.8 C 85 20 132/75 94 02/28/22 08:09 36.7 C 72 18 125/68 90 02/28/22 08:04 62 02/28/22 06:58 73 16 97 02/28/22 04:00 91 02/28/22 03:55 36.8 C 74 22 118/75 95 Critical Care Results & Data Vital Signs (Past 12 Hours) Vital Signs Temp Pulse Pulse Resp BP Pulse Ox 02/28/22 15:04 36.9 C 94 H 20 121/77 93 02/28/22 15:01 101 H 02/28/22 12:34 73 16 99 02/28/22 11:51 36.8 C 85 20 132/75 94 02/28/22 08:09 36.7 C 72 18 125/68 90 02/28/22 08:04 62 02/28/22 06:58 73 16 97 Lab & Micro Results (Past 24 Hours) RBC 4.05 M/uL (4.7-6.1) L 02/28/22 WBC 11.26 K/uL (4.8-10.8) H 02/28/22 Hgb 12.2 g/dL (14.0-18.0) L 02/28/22 Hct 35.6 % (42-52) L 02/28/22 MCV 87.9 fL (80-100) 02/28/22 MCH 30.1 pg (25-34) 02/28/22 MCHC 34.3 g/dL (32-36) 02/28/22 RDW Standard Deviation 44.1 fL (36.4-46.3) 02/28/22 RDW Coefficient of Variation 13.7 % (11.5-14.5) 02/28/22 Plt Count 383 K/uL (130-400) 02/28/22 MPV 10.5 fL (7.4-10.4) H 02/28/22 Na 139 mmol/L (136-145) 02/28/22 K 3.6 mmol/L (3.5-5.1) 02/28/22 Cl 106 mmol/L (98-107) 02/28/22 CO2 27 mmol/L (21-32) 02/28/22 Anion Gap 6 (3-11) 02/28/22 BUN 14 mg/dl (6-23) 02/28/22 Creatinine 1.19 mg/dl (0.6-1.4) 02/28/22 Estimated GFR ( Amer) 84.4 ml/min 02/28/22 Estimated GFR (Non-Af Amer) 72.8 ml/min 02/28/22 BUN/Creatinine Ratio 11.8 (10-20) 02/28/22 Glu 109 mg/dl (70-99(Fasting)) H 02/28/22 Ca 8.1 mg/dl (8.5-10.1) L 02/28/22 Phosphorus Level 3.6 mg/dl (2.5-4.9) 02/28/22 Mg 2.0 mg/dl (1.7-2.4) 02/28/22 05:26 02/28/22 Calcium Level 8.1 mg/dl (8.5-10.1) L 02/28/22 05:26 02/28/22 Microbiology 02/22/22 14:42 Aerobic Blood Culture - Final Blood No growth in Aerobic bottle after 5 days. Anaerobic Blood Culture - Final No growth in Anaerobic bottle after 5 days. 02/22/22 14:42 Aerobic Blood Culture - Final Blood No growth in Aerobic bottle after 5 days. Anaerobic Blood Culture - Final No growth in Anaerobic bottle after 5 days. I & O Totals 24 Hours 02/27/22 02/28/22 03/01/22 06:59 06:59 06:59 Intake Total 2210.166 / 2210.166 1385 / 1385 Output Total 7000 / 7000 2451 / 2451 300 / 300 Balance -4789.834 / -4789.834 -1066 / -1066 -300 / -300 Cumulative 02/22/22 14:00 thru 02/28/22 14:25 Intake Total 95068.583 Output Total 31469 Balance 8842.583 RT Ventilator Mngmt (Last Documented) Ventilator Ordered Settings Respiratory Rate 20 02/28/22 15:04 Fraction of Inspired Oxygen 40 02/27/22 09:00 Ventilator - PT Measurements Respiratory Rate 20 PG Care Time/CCT Total # of Minutes Spent Total Time Spent with Patient: Total time spent is greater than 50% in coordination of care (as documented) at patient's floor/unit and/or counseling patient: 30 minutes including hallway ambulation with pulse oximetry check Coding Level of Care Code 68487 Subseq Hosp Care Lvl 3 Diagnoses Hypoxia R09.02 RLL pneumonia J18.9 Cough with hemoptysis R04.2 DVT prophylaxis Z29.9 Time Spent (min) 30
[2022-02-28] MEDS: levoFLOXacin/D5W 750 MG/150 ML BAG IV SCH (17:26)
--- NOTE | 2022-02-28 18:51 | Hospitalist Progress Note ---
Date of Service February 28, 2022 Assessment & Plan (1) Sepsis: (2) RLL pneumonia: (3) Hypoxia: (4) BARB (acute kidney injury): Plan: Right Lung Multifocal Pneumonia Acute Hypoxic Respiratory Failure Hemoptysis Present on admission with fever and SOB Patient meets sepsis criteria per current CMS guidelines Upon admission patient was tachycardic, tachypneic and elevated white blood cell count of 14k. Patient also reports fever of 104 for the last 3 days at home. Source: Right lower lobe pneumonia CTA chest showed Right lower lobe airspace opacity may represent aspiration and/or pneumonia. No evidence of pulmonary embolism. Lactic acid, Lyme, SARS-CoV-2, influenza AMB and RSV all negative Urine: (+) Legionella Procalcitonin trending down Pulmonary on board Abx changed to Levaquin to complete a total of 14 days course Continue lasix IV prn Currently on 2 L NC oxygen Continue to titrate off oxygen Patient will need a repeat CT chest in 3 months to make sure there is decrease in the size of the right lower lobe infiltrate Continue incentive spirometry Prednisone discontinued Hemoptysis Repeat CT Chest: progressing multifocal pneumonia Continue to hold Lovenox Avoid flutter valve due to hemoptysis Melena r/o GI bleed placed on Protonix drip hgb stable NPO Dysphagia mostly to solids Speech therapy evaluation Continue regular diet Stable BARB Creatinine 1.1 today received IVF resolved Hematuria microscopic Repeat UA on further work-up as outpatient Nausea & Vomiting obtain KUB: No obstruction continue anti emetics, IVF Advanced diet DVT ppx: SQ Lovenox-- held for hemoptysis FULL CODE Disposition Plan to discharge once medically stable Admission and Anticipated Discharge Date Admission Date: February 22, 2022 Subjective Pt was seen and examined for follow up of SOB Lying in bed with no acute distress Pt said that he feels much better Currently he is on 2L oxygen supplement he is very anxious to go home tomorrow Denies any chest pain, palpitation, dizziness and fever Review of Systems Review of Systems: All systems reviewed & are unremarkable except as noted in Subjective Physical Exam Physical Exam: General- No acute distress Head- atraumatic Eyes- PERRL, EOMI, ENT- oropharynx clear Neck- supple, no JVD Lungs- +diminished BS Heart- regular rhythm; no murmur Abdomen- normal bowel sounds, soft, nontender Extremities- no calf tenderness Neuro- alert, oriented x 3; PERRL, EOMI; no facial palsy; no dysarthria Skin- warm & dry Results & Data Results & Data ([facility]) Vital Signs (Past 12 Hours) Vital Signs Temp Pulse Pulse Resp BP Pulse Ox 02/28/22 15:04 36.9 C 94 H 20 121/77 93 02/28/22 15:01 101 H 02/28/22 12:34 73 16 99 02/28/22 11:51 36.8 C 85 20 132/75 94 02/28/22 08:09 36.7 C 72 18 125/68 90 02/28/22 08:04 62 02/28/22 06:58 73 16 97
[2022-03-01] MEDS: LEVALBUTEROL 1.25MG/0.5ML NEB NEB SCH (00:54)
[2022-03-01] MEDS: LEVALBUTEROL HCL 1.25 MG/3 ML NEB NEB SCH ×3 (07:17→15:18)
[2022-03-01 08:29] LABS: Hematocrit (blood only) 38.9 % (42-52); Mean Corpuscular Hemoglobin 29.3 pg (25-34); Mean Corpuscular Hgb Conc 33.4 g/dL (32-36); Mean Corpuscular Volume 87.8 fL (80-100); Mean Platelet Volume 10.6 fL (7.4-10.4); Platelet Count 479 K/uL (130-400); RDW Coefficient of Variation 14.2 % (11.5-14.5); RDW Standard Deviation 45.6 fL (36.4-46.3); Red Blood Count 4.43 M/uL (4.7-6.1); White Blood Count 9.66 K/uL (4.8-10.8)
[2022-03-01] MEDS: PANTOprazole 40 MG TAB PO SCH (09:15)
--- NOTE | 2022-03-01 13:57 | Discharge Summary ---
Date of Service March 01, 2022 Admission HPI Per Admitting Provider This is a 46-year-old male who has significant past medical history and is otherwise healthy who presents to ED after having a fever of 104 for the last 3 days. He further complains of nausea and vomiting over the last 2 days. He also has mild lower abdominal pain. Patient did go to urgent care yesterday and had a COVID test which was negative. He presented to ED today after continuing to have a fever and fear of dehydration. He has been taking Tylenol at home to assist in fever. He denies any sick contacts or recent travel. He has no known past medical problems and does not take any prescription medications. Over the last few days he has had a poor appetite. He further admits to shortness of breath with exertion but denies any isaías cough. He further denies lightheadedness, dizziness, chest pain, hemoptysis, dysuria, increased urgency or frequency with urination, diarrhea, melena or hematochezia. He has never had a thing like this in the past. In ED patient met sepsis criteria secondary to tachycardia, tachypnea, leukocytosis and evidence of right lower lobe pneumonia on chest x-ray. He also appears dehydrated as he is elevated BUN and creatinine at 27 and 1.56. His lactic acid was within normal limits. His Lyme titer was negative along with a SARS-CoV-2, influenza and RSV. Discharge Data Allergies Allergy/AdvReac Type Severity Reaction Status Date / Time No Known Allergies Allergy Unknown Verified 02/22/22 19:57 Consultations 02/22/22 18:39 ED Decision to Admit Stat 02/25/22 19:10 Consult Pulmonology Routine 02/26/22 13:15 Consult Train Dispatcher Routine Ordered Studies 02/22/22 18:20 CT angio chest PE protocol Stat 02/25/22 03:19 CT chest diagnostic wo con Urgent Hospital Course (1) Sepsis: (2) RLL pneumonia: (3) Hypoxia: (4) BARB (acute kidney injury): Right Lung Multifocal Pneumonia Acute Hypoxic Respiratory Failure Hemoptysis Present on admission with fever and SOB Patient meets sepsis criteria per current CMS guidelines Upon admission patient was tachycardic, tachypneic and elevated white blood cell count of 14k. Patient also reports fever of 104 for the last 3 days at home. Source: Right lower lobe pneumonia CTA chest showed Right lower lobe airspace opacity may represent aspiration and/or pneumonia. No evidence of pulmonary embolism. Lactic acid, Lyme, SARS-CoV-2, influenza AMB and RSV all negative Urine: (+) Legionella Procalcitonin trending down Pulmonary on board Abx changed to Levaquin to complete a total of 14 days course Continue lasix IV prn Pt was titrate off oxygen Patient will need a repeat CT chest in 3 months to make sure there is decrease in the size of the right lower lobe infiltrate Continue incentive spirometry Prednisone discontinued 2 step exercise done and pt did not require any oxygen supplement case discussed with ID in [place] Dr. Fernandez ( No official consult placed) about antibiotic duration for the legionella pneumonia As per ID pt will need Levaquin for 14days if no improve abx might need to extend Discussed with patient about the risk of tendon rupture while on Levaquin and to avoid any physical activity until ok with his PCP Hemoptysis Repeat CT Chest: progressing multifocal pneumonia Continue to hold Lovenox Avoid flutter valve due to hemoptysis Melena r/o GI bleed placed on Protonix drip hgb stable Dysphagia mostly to solids Speech therapy evaluation Continue regular diet Stable BARB Creatinine 1.1 today received IVF resolved Hematuria microscopic Repeat UA on further work-up as outpatient Nausea & Vomiting obtain KUB: No obstruction continue anti emetics, IVF Advanced diet DVT ppx: SQ Lovenox-- held for hemoptysis FULL CODE Disposition Discharge home today Total Time Total Time Spent Total Time Spent (In Minutes): 35 minutes Discharge Plan Discharge Items Reason For Visit: RLL PNA Condition on Discharge: Fair Follow-up/Referrals: Karoline Yepez DO [Primary Care Provider] - (Date & Time 03/07/2022 11:00 AM Provider Karoline Yepez DO Department [facility] ) Medications and DC Order Prescriptions: No Action No Known Home Medications RF: 0 Admission Data Admit Date/Time: 02/22/22 19:38 Attending Provider: Araceli Capone Admit Provider: Genaro Crenshaw Primary Care Provider: Karoline Yepez Other Providers: Chris Alvarez ; [facility],Home Healthcare ; Genaro Crenshaw ; Jake Rosario ; Lauri Penaloza
== END 2022-03-01 16:48 | disposition home or self-care (01) | DRG 871 ==
LOC: ED 14:00 → SUATTDRO 19:38 → 2S 19:38 → 1E 02-26 13:07 → 2N 02-27 18:39